=== PATIENT | female | born 1990 | race African-American/Black ===

== ENCOUNTER 2018-08-04 07:05 | Emergency (ER) | payer OTHER ==
[2018-08-04 07:11] VITALS: BP 152/92; PULSE 102; RESP 18; TEMP 99
[2018-08-04] MEDS ORDERED: MAG HYDROX/AL HYDROX/SIMETH 30 ML, HYOSCYAMINE ELIXIR 10 ML, CIMETIDINE HCL 300 MG, LID... PO STA ×4 (07:35)
[2018-08-04 07:53] LABS: Appearance,Urine Clear (Clear); Bacteria,Urine Rare /hpf; Bilirubin,Urine Negative (Negative); Blood,Urine Negative (Negative); Color,Urine Colorless; Glucose,Urine (UA) Negative (Negative); Ketones,Urine Negative (Negative); Leukocyte Esterase,Urine Small (Negative); Mucus,Urine Rare /hpf; Nitrite,Urine Negative (Negative); PH, Urine 6.5 (5.0-8.0); Protein,Urine Negative (Negative); RBC,Urine 2 /hpf (0-5); Specific Gravity,Urine 1.003 (1.001-1.035); Squamous Epithelial Cell,Urine 2 /hpf (0-4); Urobilinogen,Urine <2.0 mg/dL (<2.0)
--- NOTE | 2018-08-04 07:54 | ED ---
General Adult HPI - General Chief complaint: Back Pain/Injury Stated complaint: Back, Abdominal Pain Time Seen by Provider: 08/04/18 07:28 Source: patient, RN notes reviewed Mode of arrival: ambulatory Limitations: no limitations - History of Present Illness Initial comments: Patient 28-year-old female presented to the emergency room today with a chief complaint of abscess to the right axilla that started 2 days ago. Patient states she's never had this problem before. Denies any drainage. Does admit to pain locally. Denies any other complaints. Patient denies any recent fever, chills, shortness of breath, chest pain, back pain, abdominal pain, nausea or vomiting, numbness or tingling, headaches or visual changes, or any other complaints. - Related Data Previous Rx's Medication Instructions Recorded Ibuprofen [Motrin] 600 mg PO Q6HR PRN #30 day 08/04/18 Sulfamethox-Tmp 800-160Mg [Bactrim 1 tab PO Q12HR #20 tab 08/04/18 DS 800-160 mg] Allergies Allergy/AdvReac Type Severity Reaction Status Date / Time No Known Allergies Allergy Verified 08/04/18 07:10 Review of Systems ROS Statement: Those systems with pertinent positive or pertinent negative responses have been documented in the HPI. ROS Other: All systems not noted in ROS Statement are negative. Past Medical History Past Medical History: No Reported History History of Any Multi-Drug Resistant Organisms: None Reported Additional Past Surgical History / Comment(s): cyst removed from tailbone Past Psychological History: No Psychological Hx Reported Smoking Status: Never smoker Past Alcohol Use History: Rare Past Drug Use History: Marijuana General Exam - General Exam Comments Initial Comments: General: The patient is awake and alert, in no distress, and does not appear acutely ill. i. Musculoskeletal: Normal ROM, no tenderness. Neurological: A&O x 3. CN II-XII intact, There are no obvious motor or sensory deficits. Coordination appears grossly intact. Speech is normal. Skin: Patient has a 2 cm abscess to the right axilla that is fluctuant. No drainage. Psychiatric: Cooperative, appropriate mood & affect, normal judgment. Limitations: no limitations Course Vital Signs 08/04/18 07:05 Temperature 99 F Pulse Rate 102 H Respiratory 18 Rate Blood Pressure 152/92 O2 Sat by Pulse 98 Oximetry Procedures - Procedures Initial comment: Procedure: Incision and drainage The skin overlying the abscess was prepped with Betadine, and anesthetized with 1% lidocaine without epinephrine. A #11 scalpel was then used to incise the abscess. Moderate purulent material was then extracted from the lesion. Gauze dressing placed on top, The patient tolerated the procedure well. Medical Decision Making - Medical Decision Making Patient's abscess drained here in the emergency room. She'll be started on antibiotics. She is advised continue warm compresses follow-up the family doctor or return here to emergency room if any symptoms increase or worsen. - Lab Data Lab Results 08/04/18 Range/Units 07:30 Urine HCG, Qual Not Detected (Not Detectd) Disposition Clinical Impression: Abscess Disposition: HOME SELF-CARE Condition: Good Instructions (If sedation given, give patient instructions): Abscess (ED) Additional Instructions: Please continue warm compresses as discussed. Please use antibiotic as prescribed return to emergency room for any other concerns. Prescriptions: Ibuprofen [Motrin] 600 mg PO Q6HR PRN #30 day PRN Reason: Pain Sulfamethox-Tmp 800-160Mg [Bactrim DS 800-160 mg] 1 tab PO Q12HR #20 tab Is patient prescribed a controlled substance at d/c from ED?: No Referrals: Rebecca Boudreaux MD [Primary Care Provider] - 1-2 days Time of Disposition: 07:54
--- NOTE | 2018-08-04 08:00 | ED ---
General Adult HPI - General Chief complaint: Back Pain/Injury Stated complaint: Back, Abdominal Pain Time Seen by Provider: 08/04/18 07:28 Source: patient, RN notes reviewed Mode of arrival: ambulatory Limitations: no limitations - History of Present Illness Initial comments: Patient 28-year-old female presenting to the emergency room today with multiple complaints. Patient does admit that she's had some right-sided back pain over the past 2 days. 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 Denies any injury or trauma. Also admits that she's had some abdominal pain for some time that comes and goes. Unsure if it's possible gastric reflux as she states spicy foods make it worse. Patient states that she got off work 2 hours ago and symptoms have actually improved at this time. She denies any bowel or bladder incontinence retention. She denies any saddle anesthesia. Denies any other complaints. Patient denies any recent fever, chills, shortness of breath, chest pain, nausea or vomiting, numbness or tingling, headaches or visual changes, or any other complaints. - Related Data Previous Rx's Medication Instructions Recorded Cyclobenzaprine [Flexeril] 10 mg PO TID #20 tab 08/04/18 Ibuprofen [Motrin] 600 mg PO Q6HR PRN #30 day 08/04/18 Omeprazole [PriLOSEC] 20 mg PO AC-BRKFST 14 Days cap 08/04/18 Allergies Allergy/AdvReac Type Severity Reaction Status Date / Time No Known Allergies Allergy Verified 08/04/18 07:10 Review of Systems ROS Statement: Those systems with pertinent positive or pertinent negative responses have been documented in the HPI. ROS Other: All systems not noted in ROS Statement are negative. Past Medical History Past Medical History: No Reported History History of Any Multi-Drug Resistant Organisms: None Reported Additional Past Surgical History / Comment(s): cyst removed from tailbone Past Psychological History: No Psychological Hx Reported Smoking Status: Never smoker Past Alcohol Use History: Rare Past Drug Use History: Marijuana General Exam - General Exam Comments Initial Comments: General: The patient is awake and alert, in no distress, and does not appear acutely ill. Neck: The neck is supple, there is no tenderness or JVD. Cardiovascular: There is a regular rate and rhythm. No murmur, rub or gallop is appreciated. Respiratory: Lungs are clear to auscultation, respirations are non-labored, breath sounds are equal. No wheezes, stridor, rales, or rhonchi. Gastrointestinal: Abdomen soft nontender. No rebound, guarding or CVA tenderness. Musculoskeletal: Normal ROM,. Normal appearance of the thoracic or lumbar spine. No step-off or deformity. Paravertebral tenderness on the right side. Neurological: A&O x 3. CN II-XII intact, There are no obvious motor or sensory deficits. Coordination appears grossly intact. Speech is normal. Skin: Skin is warm and dry and no rashes or lesions are noted. Psychiatric: Cooperative, appropriate mood & affect, normal judgment. Limitations: no limitations Course Vital Signs 08/04/18 07:05 Temperature 99 F Pulse Rate 102 H Respiratory 18 Rate Blood Pressure 152/92 O2 Sat by Pulse 98 Oximetry Medical Decision Making - Medical Decision Making Patient was given GI cocktail here in the emergency room for her abdominal pain. She admits to improvement states she's feeling better. Patient states that she was on Prilosec in the past will be started back on this medication. She is advised follow-up the family doctor this coming week. Patient's back pain is worse with movements. There is no trauma or fall or injury. There is no particular pain. No bowel or bladder incontinence retention. 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 Patient will be treated with ibuprofen which she is advised may irritate her stomach and to be careful with. Also be given muscle relaxer which is advised may make her drowsy. She is advised follow-up the family doctor this week if the symptoms. Advised to return if any symptoms increase or worsen. - Lab Data Lab Results 08/04/18 08/04/18 Range/Units 07:30 07:30 Urine Color Colorless Urine Appearance Clear (Clear) Urine pH 6.5 (5.0-8.0) Ur Specific [place] 1.003 (1.001-1.035) Urine Protein Negative (Negative) Urine Glucose (UA) Negative (Negative) Urine Ketones Negative (Negative) Urine Blood Negative (Negative) Urine Nitrite Negative (Negative) Urine Bilirubin Negative (Negative) Urine Urobilinogen <2.0 (<2.0) mg/dL Ur Leukocyte Esterase Small H (Negative) Urine RBC 2 (0-5) /hpf Urine WBC 1 (0-5) /hpf Ur Squamous Epith Cells 2 (0-4) /hpf Urine Bacteria Rare H (None) /hpf Urine Mucus Rare H (None) /hpf Urine HCG, Qual Not Detected (Not Detectd) Disposition Clinical Impression: Abscess Disposition: HOME SELF-CARE Condition: Good Instructions (If sedation given, give patient instructions): Abscess (ED) Additional Instructions: Please continue warm compresses as discussed. Please use antibiotic as prescribed return to emergency room for any other concerns. Prescriptions: Cyclobenzaprine [Flexeril] 10 mg PO TID #20 tab Ibuprofen [Motrin] 600 mg PO Q6HR PRN #30 day PRN Reason: Pain Omeprazole [PriLOSEC] 20 mg PO AC-BRKFST 14 Days cap Is patient prescribed a controlled substance at d/c from ED?: No Referrals: Rebecca Boudreaux MD [Primary Care Provider] - 1-2 days Time of Disposition: 08:15
--- NOTE | 2018-08-04 08:22 | ED ---
Medical Decision Making - Lab Data Lab Results 08/04/18 08/04/18 Range/Units 07:30 07:30 Urine Color Colorless Urine Appearance Clear (Clear) Urine pH 6.5 (5.0-8.0) Ur Specific [place] 1.003 (1.001-1.035) Urine Protein Negative (Negative) Urine Glucose (UA) Negative (Negative) Urine Ketones Negative (Negative) Urine Blood Negative (Negative) Urine Nitrite Negative (Negative) Urine Bilirubin Negative (Negative) Urine Urobilinogen <2.0 (<2.0) mg/dL Ur Leukocyte Esterase Small H (Negative) Urine RBC 2 (0-5) /hpf Urine WBC 1 (0-5) /hpf Ur Squamous Epith Cells 2 (0-4) /hpf Urine Bacteria Rare H (None) /hpf Urine Mucus Rare H (None) /hpf Urine HCG, Qual Not Detected (Not Detectd) Disposition Clinical Impression: GERD (gastroesophageal reflux disease), Back pain Disposition: HOME SELF-CARE Condition: Good Instructions (If sedation given, give patient instructions): Acute Low Back Pain (ED) Additional Instructions: Please use medication as discussed. Please follow-up with family doctor in the next 2 days of symptoms have not improved. Please return to emergency room if the symptoms increase or worsen or for any other concerns. Prescriptions: Cyclobenzaprine [Flexeril] 10 mg PO TID #20 tab Ibuprofen [Motrin] 600 mg PO Q6HR PRN #30 day PRN Reason: Pain Omeprazole [PriLOSEC] 20 mg PO AC-BRKFST 14 Days cap Is patient prescribed a controlled substance at d/c from ED?: No Referrals: Rebecca Boudreaux MD [Primary Care Provider] - 1-2 days Time of Disposition: 08:22
== END 2018-08-04 08:35 | disposition home or self-care (01) ==
LOC: EC 07:05
DX: K21.9 Gastro-esophageal reflux disease without esophagitis (principal); M54.9 Dorsalgia, unspecified; Z98.890 Other specified postprocedural states
CPT/HCPCS: 81001; 81025; 99283

== ENCOUNTER 2019-02-08 05:49 | Emergency (ER) | payer OTHER ==
[2019-02-08 06:38] LABS: Appearance,Urine Cloudy (Clear); Bilirubin,Urine Negative (Negative); Blood,Urine Negative (Negative); Color,Urine Yellow; Glucose,Urine (UA) Negative (Negative); Ketones,Urine Negative (Negative); Leukocyte Esterase,Urine Moderate (Negative); Mucus,Urine Moderate /hpf; Nitrite,Urine Negative (Negative); Protein,Urine Trace (Negative); RBC,Urine 38 /hpf (0-5); Specific Gravity,Urine 1.026 (1.001-1.035); Squamous Epithelial Cell,Urine 8 /hpf (0-4)
--- NOTE | 2019-02-08 06:39 | ED ---
General Adult HPI - General Chief complaint: Abdominal Pain Stated complaint: early cramping Time Seen by Provider: 02/08/19 05:56 Source: patient, RN notes reviewed Mode of arrival: ambulatory Limitations: no limitations - History of Present Illness Initial comments: This is a 28-year-old female presents emergency Department with chief complaint of abdominal cramping. Patient states that she recently department she was last week. Patient is A0 currently scheduling to seen ORACLE MANAGER. She has no complaint of vaginal bleeding or vaginal discharge she has had some urinary frequency with no dysuria no fevers chills no flank pain no back pain. - Related Data Previous Rx's Medication Instructions Recorded Pnv No.95/Ferrous Fum/Folic AC 1 each PO DAILY #30 tablet 02/08/19 [ Multivitamin Tablet] Allergies Allergy/AdvReac Type Severity Reaction Status Date / Time No Known Allergies Allergy Verified 02/08/19 06:33 Review of Systems ROS Statement: Those systems with pertinent positive or pertinent negative responses have been documented in the HPI. ROS Other: All systems not noted in ROS Statement are negative. Past Medical History Past Medical History: No Reported History History of Any Multi-Drug Resistant Organisms: None Reported Additional Past Surgical History / Comment(s): cyst removed from tailbone Past Psychological History: No Psychological Hx Reported Smoking Status: Current every day smoker Past Alcohol Use History: Rare Past Drug Use History: Marijuana General Exam Limitations: no limitations General appearance: alert, in no apparent distress Head exam: Present: atraumatic, normocephalic, normal inspection Eye exam: Present: normal appearance, PERRL, EOMI. Absent: scleral icterus, conjunctival injection, periorbital swelling ENT exam: Present: normal exam, normal oropharynx, mucous membranes moist Neck exam: Present: normal inspection. Absent: tenderness, meningismus, lymphadenopathy Respiratory exam: Present: normal lung sounds bilaterally. Absent: respiratory distress, wheezes, rales, rhonchi, stridor Cardiovascular Exam: Present: regular rate, normal rhythm, normal heart sounds. Absent: systolic murmur, diastolic murmur, rubs, gallop, clicks GI/Abdominal exam: Present: soft, normal bowel sounds. Absent: distended, tenderness, guarding, rebound, rigid Back exam: Absent: CVA tenderness (R), CVA tenderness (L) Neurological exam: Present: alert, oriented X3, CN II-XII intact Skin exam: Present: warm, dry, intact, normal color. Absent: rash Course Vital Signs 02/08/19 05:51 Temperature 98.7 F Pulse Rate 111 H Respiratory 18 Rate Blood Pressure 150/92 O2 Sat by Pulse 100 Oximetry Medical Decision Making - Medical Decision Making 28-year-old female presents emergency from chief complaint abdominal cramping and early . Patient ultrasound urinalysis and hCG Quant. Patient has single viable IUP 7 weeks and 1 day there is no comp eating fractures at this time. She did have blood in her urine but denies any vaginal bleeding patient did decline pelvic exam. Patient is B+ blood type does not require RhoGAM. Patient has no evidence of urinary tract infection. - Lab Data Lab Results 02/08/19 02/08/19 02/08/19 Range/Units 06:00 06:15 06:15 HCG, Quant 61811.7 mIU/mL Urine Color Yellow Urine Appearance Cloudy H (Clear) Urine pH 6.0 (5.0-8.0) Ur Specific [place] 1.026 (1.001-1.035) Urine Protein Trace H (Negative) Urine Glucose (UA) Negative (Negative) Urine Ketones Negative (Negative) Urine Blood Negative (Negative) Urine Nitrite Negative (Negative) Urine Bilirubin Negative (Negative) Urine Urobilinogen 2.0 (<2.0) mg/dL Ur Leukocyte Esterase Moderate H (Negative) Urine RBC 38 H (0-5) /hpf Urine WBC 3 (0-5) /hpf Ur Squamous Epith Cells 8 H (0-4) /hpf Urine Mucus Moderate H (None) /hpf Blood Type B Positive Blood Type Recheck No Disposition Clinical Impression: Abdominal pain during Disposition: HOME SELF-CARE Condition: Stable Instructions (If sedation given, give patient instructions): Abdominal Pain in (ED) Additional Instructions: Please return to the Emergency Department if symptoms worsen or any other concerns. Prescriptions: Pnv No.95/Ferrous Fum/Folic AC [ Multivitamin Tablet] 1 each PO DAILY #30 tablet Is patient prescribed a controlled substance at d/c from ED?: No Referrals: Rebecca Boudreaux MD [Primary Care Provider] - 1-2 days Time of Disposition: 08:00
--- NOTE | 2019-02-08 07:39 | US ---
EXAMINATION TYPE: Transabdominal DATE OF EXAM: 02/08/2019 7:27 AM COMPARISON: NONE CLINICAL HISTORY: Pain. cramping, no bleeding, EXAM PERFORMED: OBTA EXAM MEASUREMENTS: GESTATIONAL AGE / DATING Physician Established: Not yet established Dates by LMP: (6 weeks/2 days) EDC: 10/02/2019 Dates by First Scan: No previous this is first scan Dates by Current Scan for: (7 weeks/1 days) EDC: 09/26/2019 MATERNAL ANATOMY Uterus: 9.7 x 7.3 x 6.6cm Right Ovary: 4.1 x 3.4 x 4.6cm Left Ovary: not seen Post CDS / Adnexa: wnl Presence of free fluid: no Presence of corpus luteal cyst: yes, right ov has 2 cystic structures largest = 2.0cm, and smaller on =1.9cm Presence of subchorionic bleed: no GESTATION / SURVEY CRL: 1.1cm (7 weeks/1 days) MSD: wnl Yolk Sac (normal less than 6mm): 0.5cm Heart Rate: 145 bpm Rhythm: Normal IUP: Live IUP Date of LMP: 12/26/2018 Beta HcG (if available): None IMPRESSION: Single live intrauterine with a calculated sonographic age of 7 weeks and 1 day and estimat ed date of delivery of 09/26/2019 overall concordant with menstrual age. No complicating process is se en at this time.
[2019-02-08 08:14] VITALS: BP 128/42; PULSE 79; RESP 16; TEMP 98.2
== END 2019-02-08 08:13 | disposition home or self-care (01) ==
LOC: EC 05:49
DX: O99.89 Other specified diseases and conditions complicating pregnancy, childbirth and the puerperium (principal); R10.9 Unspecified abdominal pain; O99.331 Smoking (tobacco) complicating pregnancy, first trimester; F17.200 Nicotine dependence, unspecified, uncomplicated; O26.891 Other specified pregnancy related conditions, first trimester; R31.9 Hematuria, unspecified; Z3A.01 Less than 8 weeks gestation of pregnancy
CPT/HCPCS: 36415; 76801; 81001; 84702; 86900; 86901; 99284

== ENCOUNTER → 2019-03-26 | Outpatient (CLI) | payer OTHER ==
--- NOTE | 2019-03-26 18:55 | US ---
EXAMINATION TYPE: US OB >= 14 wk fetus DATE OF EXAM: 03/26/2019 COMPARISON: US CLINICAL HISTORY: O99.211 obesity affecting in first Confirm dates, obesity on TECHNIQUE: Transabdominal (TA) GESTATIONAL AGE / DATING Physician Established: (13 weeks/5 days) EDC: 09/26/2019 Dates by LMP: unknown Dates by First Scan: (13 weeks/5 days) EDC: 09/26/2019 Dates by Current Scan: (15 weeks/0 days) EDC: 09/17/2019 SURVEY IUP: Single PLACENTA: Posterior PREVIA: Low Lying EDISON: Too early to calculate CERVICAL LENGTH (transabdominal: norm > 3.0cm): 4.7 cm BIOMETRY PRESENTATION: Variable BPD: 2.8 cm 15 weeks / 1 days HC: 10.8 cm 15 weeks / 2 days AC: 8.6 cm 15 weeks / 0 days FL: 1.5 cm 14 weeks / 3 days ESTIMATED WEIGHT IN GRAMS: 105 grams ESTIMATED WEIGHT IN LBS/OZ: 0 lbs. 4 oz. WEIGHT PERCENTAGE BASED ON ESTABLISHED DATES: 94% HC/AC: 1.26 Normal FL/AC: 17 Normal HEART RATE: 156 bpm RHYTHM: Normal Single, viable IUP/ No abnormality visualized at this time Morbidly obese pt, difficult exam IMPRESSION: 1. Single intrauterine gestation estimated at 15 weeks 0 days gestation based on current ultrasound m easurements. Cardiac activity measures 156 bpm.
== END | disposition home or self-care (01) ==
LOC: RADUSWWP 13:39
PROVIDERS: ATTEND Obstetrics & Gynecology
DX: O99.211 Obesity complicating pregnancy, first trimester (principal); Z3A.15 15 weeks gestation of pregnancy
CPT/HCPCS: 76805

== ENCOUNTER 2019-04-29 15:39 | Emergency (ER) | payer OTHER ==
[2019-04-29 15:48] VITALS: BP 136/67; PULSE 88; RESP 20; TEMP 98.9
[2019-04-29] MEDS ORDERED: ACETAMINOPHEN TAB 500 MG TAB PO STA (16:12)
[2019-04-29 16:16] LABS: Appearance,Urine Clear (Clear); Bacteria,Urine Rare /hpf; Bilirubin,Urine Negative (Negative); Blood,Urine Negative (Negative); Color,Urine Yellow; Glucose,Urine (UA) Negative (Negative); Ketones,Urine Negative (Negative); Leukocyte Esterase,Urine Small (Negative); Mucus,Urine Rare /hpf; Nitrite,Urine Negative (Negative); Protein,Urine Trace (Negative); Specific Gravity,Urine 1.019 (1.001-1.035); Squamous Epithelial Cell,Urine 2 /hpf (0-4)
--- NOTE | 2019-04-29 16:19 | ED ---
Back Pain HPI - General Chief Complaint: Back Pain/Injury Stated Complaint: Back pain/18 wks preg Time Seen by Provider: 04/29/19 15:49 Source: patient Limitations: no limitations - History of Present Illness Initial Comments: Patient is a 28-year-old female presenting to emergency Department with complaints of left low back pain 4 days. Patient is currently 18 weeks , , no complications as far. Patient states the pain started gradually approximately 4 days ago and has not gone away. Patient states it does not feel like muscle pain. Admits to occasional nausea that has not been present during . Patient denies any urinary complaints at this time or history of kidney stones. Patient admits to history of hematuria approximately 10 weeks prior without signs of infection. Patient denies fever, chills, vomiting, diarrhea. Patient has not tried Tylenol for her pain. Patient has no other complaints at this time. Upon arrival to ER, vital signs are stable. - Related Data Previous Rx's Medication Instructions Recorded Pnv No.95/Ferrous Fum/Folic AC 1 each PO DAILY #30 tablet 02/08/19 [ Multivitamin Tablet] Allergies Allergy/AdvReac Type Severity Reaction Status Date / Time No Known Allergies Allergy Verified 04/29/19 15:48 Review of Systems ROS Statement: Those systems with pertinent positive or pertinent negative responses have been documented in the HPI. ROS Other: All systems not noted in ROS Statement are negative. Past Medical History Past Medical History: No Reported History History of Any Multi-Drug Resistant Organisms: None Reported Additional Past Surgical History / Comment(s): cyst removed from tailbone Past Psychological History: No Psychological Hx Reported Smoking Status: Current every day smoker Past Alcohol Use History: Rare Past Drug Use History: Marijuana General Exam - General Exam Comments Initial Comments: GENERAL: Well-appearing, well-nourished and in no acute distress. HEAD: Atraumatic, normocephalic. EYES: Pupils equal round and reactive to light, extraocular movements intact, sclera anicteric, conjunctiva are normal. ENT: TMs normal, nares patent, oropharynx clear without exudates. Moist mucous membranes. NECK: Normal range of motion, supple without lymphadenopathy or JVD. LUNGS: Breath sounds clear to auscultation bilaterally and equal. No wheezes rales or rhonchi. HEART: Regular rate and rhythm without murmurs, rubs or gallops. ABDOMEN: Soft, nontender, normoactive bowel sounds. No guarding, no rebound. No masses appreciated. No CVA tenderness. : Deferred EXTREMITIES: Normal range of motion, no pitting or edema. No clubbing or cyanosis. NEUROLOGICAL: Cranial nerves II through XII grossly intact. Normal speech, normal gait. PSYCH: Normal mood, normal affect. SKIN: Warm, Dry, normal turgor, no rashes or lesions noted. Limitations: no limitations Course Vital Signs 04/29/19 15:46 Temperature 98.9 F Pulse Rate 88 Respiratory 20 Rate Blood Pressure 136/67 O2 Sat by Pulse 99 Oximetry Medical Decision Making - Medical Decision Making Patient is a 28-year-old female presenting with left low back pain 4 days. Patient is currently 18 weeks without complications thus far. UA shows no signs of infection, no hematuria. Discussed with patient is most likely a muscle-skeletal in nature. Patient has follow-up with PODIATRIC TECHNICIAN in 4 days. She is stable for discharge at this time. She is in agreement with this plan of care. Return parameters were discussed with the patient and she verbalized understanding. Case discussed with Dr. Pettit. - Lab Data Lab Results 04/29/19 Range/Units 16:05 Urine Color Yellow Urine Appearance Clear (Clear) Urine pH 7.0 (5.0-8.0) Ur Specific [place] 1.019 (1.001-1.035) Urine Protein Trace H (Negative) Urine Glucose (UA) Negative (Negative) Urine Ketones Negative (Negative) Urine Blood Negative (Negative) Urine Nitrite Negative (Negative) Urine Bilirubin Negative (Negative) Urine Urobilinogen 12.0 (<2.0) mg/dL Ur Leukocyte Esterase Small H (Negative) Urine WBC 2 (0-5) /hpf Ur Squamous Epith Cells 2 (0-4) /hpf Urine Bacteria Rare H (None) /hpf Urine Mucus Rare H (None) /hpf Disposition Clinical Impression: Low back pain Disposition: HOME SELF-CARE Condition: Stable Instructions (If sedation given, give patient instructions): Acute Low Back Pain (ED) Additional Instructions: Please return to the Emergency Department if symptoms worsen or any other concerns. Follow-up with PODIATRIC TECHNICIAN as discussed next week. May use heat and use tylenol for releif. Is patient prescribed a controlled substance at d/c from ED?: No Referrals: Rebecca Boudreaux MD [Primary Care Provider] - 1-2 days
== END 2019-04-29 16:55 | disposition home or self-care (01) ==
LOC: EC 15:39
DX: O99.89 Other specified diseases and conditions complicating pregnancy, childbirth and the puerperium (principal); M54.5 Low back pain; O99.332 Smoking (tobacco) complicating pregnancy, second trimester; F17.200 Nicotine dependence, unspecified, uncomplicated; Z3A.18 18 weeks gestation of pregnancy
CPT/HCPCS: 81001; 99283

== ENCOUNTER 2019-09-21 17:52 | Inpatient (IN) | payer OTHER ==
[2019-09-21] MEDS ORDERED: MAGNESIUM SULFATE-WATER PMX 4 GM in WATER FOR INJECTION 1 100ML.BAG IVPB STA (18:28)
[2019-09-21] MEDS ORDERED: MAGNESIUM SULFATE-WATER PMX 20 GM in WATER FOR INJECTION 1 500ML.BAG IV SCH ×2 (18:30→22:45)
[2019-09-21 18:33] LABS: Basophils % (A) 0 %; Eosinophils # (A) 0.3 k/uL (0-0.7); Eosinophils % (A) 3 %; HCT 39.2 % (34.0-46.0); HGB 12.6 gm/dL (11.4-16.0); Lymphocytes # (A) 2.3 k/uL (1.0-4.8); Lymphocytes % (A) 22 %; MCH 29.1 pg (25.0-35.0); MCHC 32.1 g/dL (31.0-37.0); MCV 90.6 fL (80.0-100.0); Mean Platelet Volume 8.9; Monocytes # (A) 0.3 k/uL (0-1.0); Monocytes % (A) 3 %; Neutrophils # (A) 7.2 k/uL (1.3-7.7); Neutrophils % (A) 69 %; Platelet Count 203 k/uL (150-450); RBC 4.33 m/uL (3.80-5.40); RDW 14.3 % (11.5-15.5); WBC 10.4 k/uL (3.8-10.6)
--- NOTE | 2019-09-21 18:35 | ED ---
General Adult HPI <Tom Ley - Last Filed: 09/21/19 20:14> - General Source: patient, RN notes reviewed, old records reviewed Mode of arrival: ambulatory Limitations: no limitations <Wil Green - Last Filed: 09/21/19 20:23> - General Chief complaint: Shortness of Breath Stated complaint: SOB, leg swelling - History of Present Illness Initial comments: 29-year-old female patient 5 days post vaginal delivery of NC 50 complaint 3 days of bilateral leg swelling, mild shortness of breath. Patient reports that she delivered at 38 weeks, vaginal delivery. Denies any complications. Denies any gestational hypertension or diabetes, preeclampsia. Patient delivered at [facility] with Dr. Crabtree patient was in the last 3 days she has been experiencing swelling in her lower extremities and some very mild shortness of breath. Denies any chest pain. Denies any pain in her lower extremity is. Denies abdominal pain. Denies any symptoms vaginal bleeding or discharge. Denies any headache changes in vision also mental status. Denies any other complaints. Denies any fevers, contact with known coronavirus or travel. Denies any prior history of VTE. Patient is not breast-feeding. Systemic: Pt denies fatigue, fever/chills, rash. Pt denies weakness, night sweats, weight loss. Neuro: Pt denies headache, visual disturbances, syncope or pre-syncope. HEENT: Pt denies ocular discharge or irritation, otalgia, rhinorrhea, pharyngitis or notable lymphadenopathy. Cardiopulmonary: Pt denies chest pain, heart palpitations, dyspnea on exertion. Abdominal/GI: Pt denies abdominal pain, n/v/d. : Pt denies dysuria, burning w/ urination, frequency/urgency. Denies new onset urinary or bowel incontinence. MSK: Pt denies myalgia, loss of strength or function in extremities. Neuro: Pt denies new onset weakness, paresthesias. (Wil Green) - Related Data Home Medications Medication Instructions Recorded Confirmed Ibuprofen [Motrin Ib] 800 mg PO TID PRN 09/21/19 09/21/19 Allergies Allergy/AdvReac Type Severity Reaction Status Date / Time No Known Allergies Allergy Verified 09/21/19 19:48 Review of Systems ROS Other: All systems not noted in ROS Statement are negative. <Tom Ley - Last Filed: 09/21/19 20:14> ROS Other: All systems not noted in ROS Statement are negative. <Wil Green - Last Filed: 09/21/19 20:23> ROS Statement: Those systems with pertinent positive or pertinent negative responses have been documented in the HPI. Past Medical History Past Medical History: No Reported History History of Any Multi-Drug Resistant Organisms: None Reported Additional Past Surgical History / Comment(s): cyst removed from tailbone Past Psychological History: No Psychological Hx Reported Smoking Status: Current every day smoker Past Alcohol Use History: Rare Past Drug Use History: Marijuana <Wil Green - Last Filed: 09/21/19 20:23> General Exam Limitations: no limitations <Wil Green - Last Filed: 09/21/19 20:23> - General Exam Comments Initial Comments: Constitutional: NAD, AOX3, Pt has pleasant affect. HEENT: NC/AT, trachea midline, neck supple, no lymphadenopathy. Posterior pharynx non erythematous, without exudates. External ears appear normal, without discharge. Mucous membranes moist. Eyes PERRLA, EOM intact. There is no scleral icterus. No pallor noted. Cardiopulmonary: RRR, no murmurs, rubs or gallops, no JVD noted. Lungs CTAB in anterior and posterior english. +2 peripheral edema. Abdominal exam: Abdomen soft and non-distended. Abdomen non-tender to palpation in all 4 quadrants. Bowel sounds active in LLQ. No hepatosplenomegaly. No ecchymosis Neuro: CN II-XII intact. No nuchal rigidity. No raccon eyes, no lainez sign, no hemotympanum. No cervical spinal tenderness. Patellar reflexes +2 bilaterally. MSK: No posterior calf tenderness bilaterally, homans sign negative bilaterally. Posterior tibialis and radial pulse +2 bilaterally. Sensation intact in upper and lower extremities. Full active ROM in upper and lower extremities, 5/5 stregnth. (Wil Green) Course Vital Signs 09/21/19 09/21/19 09/21/19 17:54 18:10 18:17 Temperature 98.6 F Pulse Rate 71 76 Respiratory 18 21 20 Rate Blood Pressure 177/100 O2 Sat by Pulse 99 Oximetry 09/21/19 09/21/1920 18:20 18:30 18:40 Temperature Pulse Rate 71 70 66 Respiratory 21 20 18 Rate Blood Pressure 159/112 159/112 169/88 O2 Sat by Pulse 98 97 97 Oximetry 09/21/19 09/21/19 09/21/19 18:50 19:00 19:10 Temperature Pulse Rate 61 66 Respiratory 15 20 Rate Blood Pressure 169/88 173/87 165/86 O2 Sat by Pulse 97 98 Oximetry 09/21/19 09/21/19 09/21/19 19:20 19:30 19:40 Temperature Pulse Rate 73 72 77 Respiratory 24 18 19 Rate Blood Pressure 165/86 165/86 160/80 O2 Sat by Pulse 95 97 97 Oximetry 09/21/19 09/21/19 19:50 20:00 Temperature Pulse Rate 75 75 Respiratory 23 21 Rate Blood Pressure 155/82 155/82 O2 Sat by Pulse 97 97 Oximetry Medical Decision Making - Lab Data Result diagrams: 09/21/19 18:15 09/21/19 18:15 <Tom Ley - Last Filed: 09/21/19 20:14> - Lab Data Result diagrams: 09/21/19 18:15 09/21/19 18:15 - EKG Data -: EKG Interpreted by Me (and Dr. Ley) <Wil Green - Last Filed: 09/21/19 20:23> - Medical Decision Making 29-year-old female presenting with dyspnea, bilateral lower extremity swelling, 5 days , vaginal delivery. Patient is hypertensive, there is concern for preeclampsia. Workup is initiated emergency department. She has normal CBC, normal platelets, stable hemoglobin. She has a normal kidney function, mild transaminitis, mild elevation in LDH. She has 2+ proteinuria consistent with preeclampsia. X-ray showing blunting of the bilateral costophrenic angles, with cardio megaly. There is concern for cardiomyopathy in addition to preeclampsia. She is started on magnesium, bolus and infusion as well as labetalol in the emergency department. She's given antibiotics as there is some concern for pneumonia although I suspect this is likely related to pulmonary edema rather than mitch pneumonia as this patient has not coughed, there is no fever, there is no leukocytosis. I discussed the case with Dr. Connors, he will accept admission. Both internal medicine and cardiology placed on consult. Echo will be obtained. She will have close monitoring of her in's and out's. She's placed in seizure precautions. Diagnosis: preeclampsia, hypertension, concern for -induced cardiomyopathy (Tom Ley) - Lab Data Lab Results 09/21/19 09/21/19 09/21/19 Range/Units 18:15 18:15 18:15 WBC 10.4 (3.8-10.6) k/uL RBC 4.33 (3.80-5.40) m/uL Hgb 12.6 (11.4-16.0) gm/dL Hct 39.2 (34.0-46.0) % MCV 90.6 (80.0-100.0) fL MCH 29.1 (25.0-35.0) pg MCHC 32.1 (31.0-37.0) g/dL RDW 14.3 (11.5-15.5) % Plt Count 203 (150-450) k/uL Neutrophils % 69 % Lymphocytes % 22 % Monocytes % 3 % Eosinophils % 3 % Basophils % 0 % Neutrophils # 7.2 (1.3-7.7) k/uL Lymphocytes # 2.3 (1.0-4.8) k/uL Monocytes # 0.3 (0-1.0) k/uL Eosinophils # 0.3 (0-0.7) k/uL Basophils # 0.0 (0-0.2) k/uL Sodium 136 L (137-145) mmol/L Potassium 4.3 (3.5-5.1) mmol/L Chloride 107 (98-107) mmol/L Carbon Dioxide 27 (22-30) mmol/L Anion Gap 2 mmol/L BUN 14 (7-17) mg/dL Creatinine 0.52 (0.52-1.04) mg/dL Est GFR (CKD-EPI)AfAm >90 (>60 ml/min/1.73 sqM) Est GFR (CKD-EPI)NonAf >90 (>60 ml/min/1.73 sqM) Glucose 73 L (74-99) mg/dL Uric Acid 6.0 (3.7-7.4) mg/dL Calcium 8.4 (8.4-10.2) mg/dL Magnesium 1.5 L (1.6-2.3) mg/dL Total Bilirubin 0.2 (0.2-1.3) mg/dL AST 37 H (14-36) U/L ALT 50 H (4-34) U/L Alkaline Phosphatase 102 (38-126) U/L Lactate Dehydrogenase 748 H (313-618) U/L Troponin I 0.016 (0.000-0.034) ng/mL NT-Pro-B Natriuret Pep pg/mL Total Protein 6.1 L (6.3-8.2) g/dL Albumin 3.2 L (3.5-5.0) g/dL Urine Color Urine Appearance (Clear) Urine pH (5.0-8.0) Ur Specific Hart[place] (1.001-1.035) Urine Protein (Negative) Urine Glucose (UA) (Negative) Urine Ketones (Negative) Urine Blood (Negative) Urine Nitrite (Negative) Urine Bilirubin (Negative) Urine Urobilinogen (<2.0) mg/dL Ur Leukocyte Esterase (Negative) Urine RBC (0-5) /hpf Urine WBC (0-5) /hpf Ur Squamous Epith Cells (0-4) /hpf Amorphous Sediment (None) /hpf Urine Bacteria (None) /hpf Hyaline Casts (0-2) /lpf Urine Mucus (None) /hpf 09/21/19 09/21/19 Range/Units 18:27 19:05 WBC (3.8-10.6) k/uL RBC (3.80-5.40) m/uL Hgb (11.4-16.0) gm/dL Hct (34.0-46.0) % MCV (80.0-100.0) fL MCH (25.0-35.0) pg MCHC (31.0-37.0) g/dL RDW (11.5-15.5) % Plt Count (150-450) k/uL Neutrophils % % Lymphocytes % % Monocytes % % Eosinophils % % Basophils % % Neutrophils # (1.3-7.7) k/uL Lymphocytes # (1.0-4.8) k/uL Monocytes # (0-1.0) k/uL Eosinophils # (0-0.7) k/uL Basophils # (0-0.2) k/uL Sodium (137-145) mmol/L Potassium (3.5-5.1) mmol/L Chloride (98-107) mmol/L Carbon Dioxide (22-30) mmol/L Anion Gap mmol/L BUN (7-17) mg/dL Creatinine (0.52-1.04) mg/dL Est GFR (CKD-EPI)AfAm (>60 ml/min/1.73 sqM) Est GFR (CKD-EPI)NonAf (>60 ml/min/1.73 sqM) Glucose (74-99) mg/dL Uric Acid (3.7-7.4) mg/dL Calcium (8.4-10.2) mg/dL Magnesium (1.6-2.3) mg/dL Total Bilirubin (0.2-1.3) mg/dL AST (14-36) U/L ALT (4-34) U/L Alkaline Phosphatase (38-126) U/L Lactate Dehydrogenase (313-618) U/L Troponin I (0.000-0.034) ng/mL NT-Pro-B Natriuret Pep 399 pg/mL Total Protein (6.3-8.2) g/dL Albumin (3.5-5.0) g/dL Urine Color Yellow Urine Appearance Cloudy H (Clear) Urine pH 6.0 (5.0-8.0) Ur Specific Hartman 1.036 H (1.001-1.035) Urine Protein 2+ H (Negative) Urine Glucose (UA) Negative (Negative) Urine Ketones Negative (Negative) Urine Blood Large H (Negative) Urine Nitrite Negative (Negative) Urine Bilirubin Negative (Negative) Urine Urobilinogen <2.0 (<2.0) mg/dL Ur Leukocyte Esterase Large H (Negative) Urine RBC 83 H (0-5) /hpf Urine WBC 78 H (0-5) /hpf Ur Squamous Epith Cells 19 H (0-4) /hpf Amorphous Sediment Rare H (None) /hpf Urine Bacteria Rare H (None) /hpf Hyaline Casts 2 (0-2) /lpf Urine Mucus Many H (None) /hpf - EKG Data EKG Comments: Ventricular rate 74, RI interval 136, QRS 76, QT/QTC 378/419. No concern for acute ischemia at this time. (Wil Green) Critical Care Time Critical Care Time: Yes Total Critical Care Time: 35 <Tom Ley - Last Filed: 09/21/19 20:14> Disposition <Tom Ley - Last Filed: 09/21/19 20:14> Is patient prescribed a controlled substance at d/c from ED?: No <Wil Green - Last Filed: 09/21/19 20:23> Clinical Impression: Pre-eclampsia in period, Hypertension Narrative: concern for peripartum cardiomyopathy (Wil Green) Disposition: ADMITTED IP TO THIS HOSP Condition: Serious Referrals: Rebecca Boudreaux MD [Primary Care Provider] - 1-2 days
[2019-09-21] MEDS ORDERED: LABETALOL 5 MG/ML VIAL MDV IVP STA ×2 (18:40→19:33)
[2019-09-21 18:41] LABS: ALT 50 U/L (4-34); AST 37 U/L (14-36); African American GFR (CKD) >90 (>60 ml/min/1.73 sqM); Albumin 3.2 g/dL (3.5-5.0); Alkaline Phosphatase 102 U/L (38-126); Anion Gap 2 mmol/L; Blood Urea Nitrogen 14 mg/dL (7-17); Calcium 8.4 mg/dL (8.4-10.2); Carbon Dioxide 27 mmol/L (22-30); Chloride 107 mmol/L (98-107); Glucose 73 mg/dL (74-99); LDH 748 U/L (313-618); Magnesium 1.5 mg/dL (1.6-2.3); Non-African American GFR(CKD) >90 (>60 ml/min/1.73 sqM); Potassium 4.3 mmol/L (3.5-5.1); Sodium 136 mmol/L (137-145); Total Bilirubin 0.2 mg/dL (0.2-1.3); Total Protein 6.1 g/dL (6.3-8.2)
--- NOTE | 2019-09-21 19:01 | XR ---
EXAMINATION TYPE: XR chest 2V DATE OF EXAM: 09/21/2019 COMPARISON: NONE HISTORY: Short of breath. Leg swelling TECHNIQUE: 2 views FINDINGS: There is some airspace infiltrate in the right lower lobe posteriorly. There is mild blunti ng of the costophrenic angles. There are no hilar masses. There is no heart failure. There are chest leads. IMPRESSION: Mild pleural reaction at the lung bases. Right lower lobe pneumonia. Heart is borderline enlarged.
[2019-09-21] MEDS ORDERED: PIPERACILLIN-TAZOBACTAM 3.375 GM in SODIUM CHLORIDE 0.9% 100 ML IVPB STA (19:28)
[2019-09-21] MEDS ORDERED: AZITHROMYCIN 500 MG in SODIUM CHLORIDE 0.9% 250 ML IVPB STA (19:28)
--- NOTE | 2019-09-21 19:39 | US ---
EXAMINATION TYPE: US venous doppler duplex LE DATE OF EXAM: 09/21/2019 7:32 PM COMPARISON: NONE CLINICAL HISTORY: sob. SOB swelling SIDE PERFORMED: Bilateral TECHNIQUE: The lower extremity deep venous system is examined utilizing real time linear array sonog aguilar with graded compression, doppler sonography and color-flow sonography. VESSELS IMAGED: External Iliac Vein (EIV) Common Femoral Vein Deep Femoral Vein Greater Saphenous Vein * Femoral Vein Popliteal Vein Small Saphenous Vein * Proximal Calf Veins (* superficial vessels) Right Leg: Negative for DVT Left Leg: Negative for DVT IMPRESSION: Normal exam. No sign of deep vein thrombosis in both legs.
[2019-09-21 19:44] LABS: Amorphous Sediment,Urine Rare /hpf; Appearance,Urine Cloudy (Clear); Bacteria,Urine Rare /hpf; Bilirubin,Urine Negative (Negative); Blood,Urine Large (Negative); Color,Urine Yellow; Glucose,Urine (UA) Negative (Negative); Hyaline Casts,Urine 2 /lpf (0-2); Ketones,Urine Negative (Negative); Leukocyte Esterase,Urine Large (Negative); Mucus,Urine Many /hpf; Nitrite,Urine Negative (Negative); Protein,Urine 2+ (Negative); RBC,Urine 83 /hpf (0-5); Specific Gravity,Urine 1.036 (1.001-1.035); Squamous Epithelial Cell,Urine 19 /hpf (0-4); Urobilinogen,Urine <2.0 mg/dL (<2.0); WBC,Urine 78 /hpf (0-5)
[2019-09-21] MEDS ORDERED: FUROSEMIDE 10 MG/ML 2 ML VIAL IV STA (19:55)
[2019-09-21] MEDS ORDERED: NALOXONE 0.4 MG/ML 1 ML VIAL IV PRN (20:09)
[2019-09-21] MEDS ORDERED: MAGNESIUM SULFATE WATER PMX IV SCH ×2 (20:31)
[2019-09-21] MEDS ORDERED: WATER IV SCH ×2 (20:31)
[2019-09-21] MEDS ORDERED: DEXTROSE 5% IV SCH ×2 (20:31)
[2019-09-21] MEDS: LACTATED RINGERS 1,000 ML IV SCH (22:56)
[2019-09-22] MEDS ORDERED: LABETALOL 5 MG/ML VIAL MDV IVP SCH
[2019-09-22] MEDS: ACETAMINOPHEN TAB 325 MG TAB PO PRN (02:53)
[2019-09-22] MEDS ORDERED: LABETALOL 5 MG/ML VIAL MDV IVP STA (03:00)
[2019-09-22] MEDS ORDERED: LABETALOL 200 MG TAB PO SCH (06:00)
[2019-09-22] MEDS: MAGNESIUM SULFATE WATER PMX IV SCH ×4 (06:28→19:59)
[2019-09-22] MEDS: DEXTROSE 5% IV SCH ×4 (06:28→19:59)
[2019-09-22] MEDS: WATER IV SCH ×4 (06:28→19:59)
[2019-09-22 06:44] LABS: Basophils # (A) 0.1 k/uL (0-0.2); Basophils % (A) 1 %; Eosinophils # (A) 0.2 k/uL (0-0.7); Eosinophils % (A) 2 %; HCT 38.1 % (34.0-46.0); HGB 12.2 gm/dL (11.4-16.0); Lymphocytes # (A) 1.8 k/uL (1.0-4.8); Lymphocytes % (A) 17 %; MCH 29.5 pg (25.0-35.0); MCV 92.1 fL (80.0-100.0); Monocytes # (A) 0.4 k/uL (0-1.0); Monocytes % (A) 3 %; Neutrophils # (A) 8.2 k/uL (1.3-7.7); Neutrophils % (A) 76 %; Platelet Count 190 k/uL (150-450); RBC 4.13 m/uL (3.80-5.40); RDW 14.5 % (11.5-15.5); WBC 10.9 k/uL (3.8-10.6)
[2019-09-22 06:56] LABS: ALT 69 U/L (4-34); AST 62 U/L (14-36); African American GFR (CKD) >90 (>60 ml/min/1.73 sqM); Albumin 3.1 g/dL (3.5-5.0); Alkaline Phosphatase 107 U/L (38-126); Anion Gap 7 mmol/L; Blood Urea Nitrogen 10 mg/dL (7-17); Calcium 7.7 mg/dL (8.4-10.2); Carbon Dioxide 25 mmol/L (22-30); Chloride 105 mmol/L (98-107); Glucose 88 mg/dL (74-99); Magnesium 3.5 mg/dL (1.6-2.3); Non-African American GFR(CKD) >90 (>60 ml/min/1.73 sqM); Potassium 4.2 mmol/L (3.5-5.1); Sodium 137 mmol/L (137-145); Total Bilirubin 0.3 mg/dL (0.2-1.3); Total Protein 5.9 g/dL (6.3-8.2)
--- NOTE | 2019-09-22 08:13 | P.HPOB ---
History of Present Illness H&P Date: 09/22/19 Chief Complaint: Shortness of breath/dyspnea 6 days The patient is a 29-year-old 3 para 3003 who presents to the emergency room with significant shortness of breath and having had a normal spontaneous vaginal delivery 5 days prior to being seen in the emergency department. Workup in the emergency department demonstrated cardiomegaly as well as bilateral pleural effusions and a possible suggestion of an infiltrate on chest x-ray. Venous Dopplers failed to demonstrate any blood clots though she was found with significant bilateral edema. She additionally had fairly significant elevated blood pressures. Remainder of the laboratory workup was within normal limits. Neither case, the diagnosis of preeclampsia was made and the patient was admitted. She reports no history of preeclampsia in any of her prior pregnancies and has had no issues with hypertension in the past as well. This was entirely uncomplicated with a normal spontaneous vaginal delivery per her report. She did deliver at [facility] in the care of Dr. Piotr Crabtree. Obstetrical history: 3 para 3003 with 3 term vaginal deliveries without apparent complication. Gynecologic history: Unremarkable with no history of any infections to include STDs. Review of Systems Review of systems is confined to history of present illness. Past Medical History Past Medical History: No Reported History History of Any Multi-Drug Resistant Organisms: None Reported Additional Past Surgical History / Comment(s): cyst removed from tailbone, vaginal delivery 09/15 at [facility] Past Psychological History: No Psychological Hx Reported Smoking Status: Current every day smoker Past Alcohol Use History: Rare Past Drug Use History: Marijuana Medications and Allergies Home Medications Medication Instructions Recorded Confirmed Type Ibuprofen [Motrin Ib] 800 mg PO TID PRN 09/21/19 09/21/19 History Allergies Allergy/AdvReac Type Severity Reaction Status Date / Time No Known Allergies Allergy Verified 09/21/19 19:48 Exam Vital Signs Temp Pulse Pulse Resp BP BP Pulse Ox 09/22/19 07:00 85 189/98 09/22/19 05:00 97.7 F 83 18 167/84 94 L 09/22/19 04:00 83 18 09/22/19 02:55 80 18 178/95 09/22/19 01:00 85 18 166/85 95 09/21/19 23:55 84 18 09/21/19 23:00 98.0 F 84 18 163/81 95 09/21/19 22:02 98.1 F 76 18 153/72 95 09/21/19 22:00 84 18 09/21/19 21:40 81 20 135/72 96 09/21/19 21:10 81 18 127/80 97 09/21/19 20:50 77 18 139/98 97 09/21/19 20:30 77 19 160/80 98 09/21/19 20:10 76 20 158/82 96 09/21/19 20:00 75 21 155/82 97 09/21/19 19:50 75 23 155/82 97 09/21/19 19:40 77 19 160/80 97 09/21/19 19:30 72 18 165/86 97 09/21/19 19:20 73 24 165/86 95 09/21/19 19:10 165/86 09/21/19 19:00 66 20 173/87 98 09/21/19 18:50 61 15 169/88 97 09/21/19 18:40 66 18 169/88 97 09/21/19 18:30 70 20 159/112 97 09/21/19 18:20 71 21 159/112 98 09/21/19 18:17 20 09/21/19 18:10 76 21 09/21/19 17:54 98.6 F 71 18 177/100 99 Intake and Output 09/21/19 09/22/19 09/22/19 22:59 06:59 14:59 Output Total 1650 Balance -1650 Output: Urine 1650 Other: Voiding Method Toilet Toilet # Voids 1 Weight 145.15 kg 142.9 kg In general, this is a moderately obese female in no acute distress. Her heart has a regular rhythm and rate without murmur. Her lungs are clear to auscultation bilaterally in all english. Her abdomen is nondistended, has normal active bowel sounds, soft, nontender, and without any palpable masses aside from uterine fundus which is appropriate at just below the umbilicus for 6 days . Her extremities are currently without any cyanosis, clubbing, or significant edema and are nontender to palpation bilaterally. SCDs are in place. Pelvic examination is deferred. Results Result Diagrams: 09/22/19 06:11 09/22/19 06:11 Abnormal Lab Results - Last 24 Hours (Table) 09/21/19 09/21/19 09/22/19 Range/Units 18:15 19:05 06:11 WBC 10.9 H (3.8-10.6) k/uL Neutrophils # 8.2 H (1.3-7.7) k/uL Sodium 136 L (137-145) mmol/L Glucose 73 L (74-99) mg/dL Calcium (8.4-10.2) mg/dL Magnesium 1.5 L (1.6-2.3) mg/dL AST 37 H (14-36) U/L ALT 50 H (4-34) U/L Lactate Dehydrogenase 748 H (313-618) U/L Total Protein 6.1 L (6.3-8.2) g/dL Albumin 3.2 L (3.5-5.0) g/dL Urine Appearance Cloudy H (Clear) Ur Specific [place] 1.036 H (1.001-1.035) Urine Protein 2+ H (Negative) Urine Blood Large H (Negative) Ur Leukocyte Esterase Large H (Negative) Urine RBC 83 H (0-5) /hpf Urine WBC 78 H (0-5) /hpf Ur Squamous Epith Cells 19 H (0-4) /hpf Amorphous Sediment Rare H (None) /hpf Urine Bacteria Rare H (None) /hpf Urine Mucus Many H (None) /hpf 09/22/19 Range/Units 06:11 WBC (3.8-10.6) k/uL Neutrophils # (1.3-7.7) k/uL Sodium (137-145) mmol/L Glucose (74-99) mg/dL Calcium 7.7 L (8.4-10.2) mg/dL Magnesium 3.5 H (1.6-2.3) mg/dL AST 62 H (14-36) U/L ALT 69 H (4-34) U/L Lactate Dehydrogenase (313-618) U/L Total Protein 5.9 L (6.3-8.2) g/dL Albumin 3.1 L (3.5-5.0) g/dL Urine Appearance (Clear) Ur Specific [place] (1.001-1.035) Urine Protein (Negative) Urine Blood (Negative) Ur Leukocyte Esterase (Negative) Urine RBC (0-5) /hpf Urine WBC (0-5) /hpf Ur Squamous Epith Cells (0-4) /hpf Amorphous Sediment (None) /hpf Urine Bacteria (None) /hpf Urine Mucus (None) /hpf Microbiology - Last 24 Hours (Table) 09/21/19 19:05 Urine Culture - Preliminary Urine,Voided Assessment and Plan (1) Cardiomegaly Current Visit: Yes Status: Acute Code(s): I51.7 - CARDIOMEGALY SNOMED Code(s): 2970229 (2) Pre-eclampsia in period Current Visit: Yes Status: Acute Code(s): O14.95 - UNSPECIFIED PRE- ECLAMPSIA, COMPLICATING THE PUERPERIUM SNOMED Code(s): 174888349 (3) Hypertension Current Visit: Yes Status: Acute Code(s): I10 - ESSENTIAL (PRIMARY) HYPERTENSION SNOMED Code(s): 87069213 Plan: The patient has been admitted for evaluation and treatment for preeclampsia. Magnesium sulfate has been started with a 4 g bolus in the emergency department followed by 2 g per hour for seizure prophylaxis. Given her cardiomegaly and continued problems with hypertension through the night despite beta ricci usage, there is a concern for the possibility of a cardiomyopathy. General medicine has been consulted in order to help manage her blood pressures as has cardiology to evaluate for the possibility of cardiomyopathy. She does not have a picture at this time consistent with possible pulmonary AB was in there still may be some concern for this. Magnesium sulfate will be run for 24 hours at which time it will be discontinued. Remainder of the medical management will be left in the hands of cardiology and the hospitalist service. She is not nursing and does not require breast pump order she will call or any particular specific or interventional care for her status.
--- NOTE | 2019-09-22 08:23 | P.CRDCN ---
History of Present Illness Consult date: 09/22/19 Requesting physician: Addi Connors Consult reason: shortness of breath Chief complaint: Shortness of breath, bilateral lower extremity edema History of present illness: This is a 29-year-old female, 5 days post vaginal delivery of a healthy baby boy, she delivered at 38 weeks. She has no history of hypertension, no diabetes, no hyperlipidemia, she does smoke. She is not currently nursing the baby. She presents to the hospital with symptoms of progressively worsening shortness of breath and bilateral lower extremity edema which she states has been going on for the past 3 days. Her chest x-ray on presentation here shows mild pleural reaction at the lung bases questionable right lower lobe pneumonia according to the report. Heart is borderline enlarged. Venous duplex study of bilateral lower extremities negative for DVT. Her EKG shows a normal sinus rhythm with nonspecific ST-T wave changes. Blood pressure on arrival here 177/100, heart rate in the 70s, 99% on room air. Her blood pressure this morning 188/98, heart rate in the 80s, 94% on room air. White blood cell count 10.9, hemoglobin 12.2, platelet count 190. Sodium 137, potassium 4.2, BUN 10, creatinine 0.5. Magnesium on admission 1.5, 3.5 this morning. AST 62, ALT 69. Troponin 0.016, BNP . Positive UTI. At the time of my examination this morning, she does state that her breathing is slightly improved, she was given Lasix on arrival here, her weight is down and she is put out good urine. Past Medical History Past Medical History: No Reported History History of Any Multi-Drug Resistant Organisms: None Reported Additional Past Surgical History / Comment(s): cyst removed from tailbone, vaginal delivery 09/15 at [facility] Past Psychological History: No Psychological Hx Reported Smoking Status: Current every day smoker Past Alcohol Use History: Rare Past Drug Use History: Marijuana Medications and Allergies Home Medications Medication Instructions Recorded Confirmed Type Ibuprofen [Motrin Ib] 800 mg PO TID PRN 09/21/19 09/21/19 History Allergies Allergy/AdvReac Type Severity Reaction Status Date / Time No Known Allergies Allergy Verified 09/21/19 19:48 Physical Exam Vitals: Vital Signs Temp Pulse Pulse Resp BP BP Pulse Ox 09/22/19 07:00 85 189/98 09/22/19 05:00 97.7 F 83 18 167/84 94 L 09/22/19 04:00 83 18 09/22/19 02:55 80 18 178/95 09/22/19 01:00 85 18 166/85 95 09/21/19 23:55 84 18 09/21/19 23:00 98.0 F 84 18 163/81 95 09/21/19 22:02 98.1 F 76 18 153/72 95 09/21/19 22:00 84 18 09/21/19 21:40 81 20 135/72 96 09/21/19 21:10 81 18 127/80 97 09/21/19 20:50 77 18 139/98 97 09/21/19 20:30 77 19 160/80 98 09/21/19 20:10 76 20 158/82 96 09/21/19 20:00 75 21 155/82 97 09/21/19 19:50 75 23 155/82 97 09/21/19 19:40 77 19 160/80 97 09/21/19 19:30 72 18 165/86 97 09/21/19 19:20 73 24 165/86 95 09/21/19 19:10 165/86 09/21/19 19:00 66 20 173/87 98 09/21/19 18:50 61 15 169/88 97 09/21/19 18:40 66 18 169/88 97 09/21/19 18:30 70 20 159/112 97 09/21/19 18:20 71 21 159/112 98 09/21/19 18:17 20 09/21/19 18:10 76 21 09/21/19 17:54 98.6 F 71 18 177/100 99 Intake and Output 09/21/19 09/22/19 09/22/19 22:59 06:59 14:59 Intake Total 360 Output Total 1650 Balance -1650 360 Intake: Oral 360 Output: Urine 1650 Other: Voiding Method Toilet Toilet # Voids 1 Weight 145.15 kg 142.9 kg PHYSICAL EXAMINATION: GENERAL: 29-year-old female in no acute distress at the time of my examination HEENT: Head is atraumatic, normocephalic. Pupils equal, round. Sclera anicteric. Conjunctiva are clear. Mucous membranes of the mouth are moist. Neck is supple. There is mild elevated jugular venous pressure. No carotid bruit is heard. HEART EXAMINATION: Heart S1, S2 normal. No murmur or gallop heard. CHEST EXAMINATION: Lungs reveal mild diminished air entry to the bases bilaterally ABDOMEN: Soft, nontender. Bowel sounds are heard. No organomegaly noted. EXTREMITIES: 2+ peripheral pulses with trace to 1+ evidence of peripheral edema and no calf tenderness noted. NEUROLOGIC patient is awake, alert and oriented 3 . Results 09/22/19 06:11 09/22/19 06:11 Cardiac Enzymes 09/21/19 09/21/19 09/22/19 Range/Units 18:15 18:15 06:11 AST 37 H 62 H (14-36) U/L Lactate Dehydrogenase 748 H (313-618) U/L Troponin I 0.016 (0.000-0.034) ng/mL CBC 09/21/19 09/22/19 Range/Units 18:15 06:11 WBC 10.4 10.9 H (3.8-10.6) k/uL RBC 4.33 4.13 (3.80-5.40) m/uL Hgb 12.6 12.2 (11.4-16.0) gm/dL Hct 39.2 38.1 (34.0-46.0) % Plt Count 203 190 (150-450) k/uL Comprehensive Metabolic Panel 09/21/19 09/22/19 Range/Units 18:15 06:11 Sodium 136 L 137 (137-145) mmol/L Potassium 4.3 4.2 (3.5-5.1) mmol/L Chloride 107 105 (98-107) mmol/L Carbon Dioxide 27 25 (22-30) mmol/L BUN 14 10 (7-17) mg/dL Creatinine 0.52 0.54 (0.52-1.04) mg/dL Glucose 73 L 88 (74-99) mg/dL Calcium 8.4 7.7 L (8.4-10.2) mg/dL AST 37 H 62 H (14-36) U/L ALT 50 H 69 H (4-34) U/L Alkaline Phosphatase 102 107 (38-126) U/L Total Protein 6.1 L 5.9 L (6.3-8.2) g/dL Albumin 3.2 L 3.1 L (3.5-5.0) g/dL Current Medications Generic Name Dose Route Start Last Admin Trade Name Freq PRN Reason Stop Dose Admin Acetaminophen 650 mg 09/22/19 02:26 09/22/19 02:53 Tylenol Tab PO 650 mg Q6HR PRN Administration Fever and/ or Pain Hydrocodone Bitart/Acetaminophen 1 each 09/22/19 07:50 [place] 5-325 PO Q6HR PRN Pain Furosemide 20 mg 09/22/19 08:00 Lasix IV Q12HR PRIYA Lactated Ringer's 1,000 mls @ 50 mls/hr 09/21/19 22:45 09/21/19 22:56 Lactated Ringers IV 50 mls/hr .Q20H PRIYA Administration Magnesium Sulfate 20 gm/ 500 mls @ 50 mls/hr 09/22/19 07:00 09/22/19 06:28 Dextrose/Water IV 2 gm/hr .Q10H PRIYA 50 mls/hr Administration 2 GM/HR Labetalol HCl 200 mg 09/22/19 06:00 09/22/19 06:07 Trandate PO 200 mg BID@0600,1800 PRIYA Administration Naloxone HCl 0.2 mg 09/21/19 20:09 Narcan IV Q2M PRN Opioid Reversal Intake and Output 09/21/19 09/22/19 09/22/19 22:59 06:59 14:59 Intake Total 360 Output Total 1650 Balance -1650 360 Intake: Oral 360 Output: Urine 1650 Other: Voiding Method Toilet Toilet # Voids 1 Weight 145.15 kg 142.9 kg 09/22/19 06:11 09/22/19 06:11 EKG Interpretations (text) Her EKG shows a normal sinus rhythm with nonspecific ST-T wave changes Assessment and Plan Plan: Assessment and plan #1 symptoms of shortness of breath with bilateral lower extremity edema, suggestive congestive cardiac failure, possible cardiomyopathy #2 status post vaginal delivery of a healthy baby boy 3 days ago at 38 weeks #3 nicotine dependence #4 accelerated hypertension #5 hypomagnesemia, replaced #6 possible pneumonia Plan We will obtain an echocardiogram with Doppler study. Continue beta ricci. Add Hydralazine. Consult Pulmonary and order procalcitonin. DNP note has been reviewed, I agree with a documented findings and plan of care. Patient was seen and examined.
[2019-09-22] MEDS: HYDROcodone/APAP 5-325MG 1 EACH TAB PO PRN ×3 (08:38→22:04)
[2019-09-22] MEDS: FUROSEMIDE 10 MG/ML 2 ML VIAL IV SCH ×4 (08:38→23:59)
[2019-09-22] MEDS ORDERED: LABETALOL 200 MG TAB PO STA (09:00)
--- NOTE | 2019-09-22 10:45 | P.CNPUL ---
History of Present Illness Consult date: 09/22/19 Reason for consult: dyspnea, pleural effusion, abnormal CXR/CT History of present illness: 29-year-old -[place] female patient of Dr. Boudreaux, with recent history of childbirth, to a term-baby boy on 09/16/2019 at the [facility] under the care of Dr. Crabtree, and it was a normal vaginal delivery, without complications. Patient was discharged home on September 18, 2019. On Friday she noted increasing swelling in her lower extremities, and shortness of breath. She does admit to some light pressure in her chest with exertion, she did have an episode of cough and she cleared some greenish colored phlegm, however her cough resolved. She denied any fever or chills, denied any hemoptysis, any pleuritic chest discomfort. Patient is a smoker, she smokes 7 cigarettes per day for 10 years. Patient has no significant medical history, no prior history of asthma no hypertension, she has a history of 3 normal pregnanci es with 3 term vaginal deliveries without complications. No history of infections or STDs. Workup in emergency department included chest x-ray with bilateral pleural effusions and a suggestion of an infiltrate in the right lower lobe. Initial blood work showed white blood cell count of 10.4, hemoglobin of 12.9, platelet count of 203, normal differential, sodium is 136, the rest of electrolytes and renal profile were within normal limits, magnesium of 1.5, AST of 37, ALT of 50, lactate dehydrogenase of 748, troponin was 0.016, proBNP was 399, urinalysis showed 2+ protein, large amount of leuk trase, RBCs and WBCs. Patient was started on diuretics Lasix 20 mg every 12 hours, and was given empiric antibiotics for possibility of right lower lobe pneumonia, and we were consulted to evaluate the patient for possibility of right lower lobe pneumonia Review of Systems All systems: negative Constitutional: Denies chills, Denies fever Eyes: denies blurred vision, denies pain Ears, nose, mouth and throat: Denies headache, Denies sore throat Cardiovascular: Denies chest pain, Denies shortness of breath Respiratory: Reports cough with sputum, Reports dyspnea, Denies cough Gastrointestinal: Denies abdominal pain, Denies diarrhea, Denies nausea, Denies vomiting Genitourinary: Denies dysuria, Denies hematuria Musculoskeletal: Denies myalgias Musculoskeletal: bilateral: ankle swelling, foot swelling Integumentary: Denies pruritus, Denies rash Neurological: Denies numbness, Denies weakness Psychiatric: Denies anxiety, Denies depression Endocrine: Denies fatigue, Denies weight change Past Medical History Past Medical History: No Reported History History of Any Multi-Drug Resistant Organisms: None Reported Additional Past Surgical History / Comment(s): cyst removed from tailbone, vaginal delivery 09/15 at [facility] Past Psychological History: No Psychological Hx Reported Smoking Status: Current every day smoker Past Alcohol Use History: Rare Past Drug Use History: Marijuana Medications and Allergies Home Medications Medication Instructions Recorded Confirmed Type Ibuprofen [Motrin Ib] 800 mg PO TID PRN 09/21/19 09/21/19 History Allergies Allergy/AdvReac Type Severity Reaction Status Date / Time No Known Allergies Allergy Verified 09/21/19 19:48 Physical Exam Vitals: Vital Signs Temp Pulse Pulse Resp BP BP BP 09/22/19 09:30 80 18 165/81 181/95 09/22/19 07:00 85 189/98 09/22/19 05:00 97.7 F 83 18 167/84 09/22/19 04:00 83 18 09/22/19 02:55 80 18 178/95 09/22/19 01:00 85 18 166/85 09/21/19 23:55 84 18 09/21/19 23:00 98.0 F 84 18 163/81 09/21/19 22:02 98.1 F 76 18 153/72 09/21/19 22:00 84 18 09/21/19 21:40 81 20 135/72 09/21/19 21:10 81 18 127/80 09/21/19 20:50 77 18 139/98 09/21/19 20:30 77 19 160/80 09/21/19 20:10 76 20 158/82 09/21/19 20:00 75 21 155/82 09/21/19 19:50 75 23 155/82 09/21/19 19:40 77 19 160/80 09/21/19 19:30 72 18 165/86 09/21/19 19:20 73 24 165/86 09/21/19 19:10 165/86 09/21/19 19:00 66 20 173/87 09/21/19 18:50 61 15 169/88 09/21/19 18:40 66 18 169/88 09/21/19 18:30 70 20 159/112 09/21/19 18:20 71 21 159/112 09/21/19 18:17 20 09/21/19 18:10 76 21 09/21/19 17:54 98.6 F 71 18 177/100 Pulse Ox 09/22/19 09:30 94 L 09/22/19 07:00 09/22/19 05:00 94 L 09/22/19 04:00 09/22/19 02:55 09/22/19 01:00 95 09/21/19 23:55 09/21/19 23:00 95 09/21/19 22:02 95 09/21/19 22:00 09/21/19 21:40 96 09/21/19 21:10 97 09/21/19 20:50 97 09/21/19 20:30 98 09/21/19 20:10 96 09/21/19 20:00 97 09/21/19 19:50 97 09/21/19 19:40 97 09/21/19 19:30 97 09/21/19 19:20 95 09/21/19 19:10 09/21/19 19:00 98 09/21/19 18:50 97 09/21/19 18:40 97 09/21/19 18:30 97 09/21/19 18:20 98 09/21/19 18:17 09/21/19 18:10 09/21/19 17:54 99 Intake and Output 09/21/19 09/22/19 09/22/19 22:59 06:59 14:59 Intake Total 360 Output Total 1650 700 Balance -1650 -340 Intake: Oral 360 Output: Urine 1650 700 Other: Voiding Method Toilet Toilet # Voids 1 Weight 145.15 kg 142.9 kg GENERAL EXAM: Alert, very pleasant, 29-year-old -[place] female, with somewhat of a flat affect with a room air pulse ox of 94%, comfortable in no apparent distress. HEAD: Normocephalic/atraumatic. EYES: Normal reaction of pupils, equal size. Conjunctiva pink, sclera white. NOSE: Clear with pink turbinates. THROAT: No erythema or exudates. NECK: No masses, no JVD, no thyroid enlargement, no adenopathy. CHEST: No chest wall deformity. Symmetrical expansion. LUNGS: Equal air entry with minimal bibasilar fine crackles, but no wheeze, rhonchi or dullness. CVS: Regular rate and rhythm, normal S1 and S2, no gallops, no murmurs, no rubs ABDOMEN: Soft, nontender. No hepatosplenomegaly, normal bowel sounds, no guarding or rigidity. EXTREMITIES: No clubbing, mild pretibial nonpitting edema, no cyanosis, 2+ pu lses and upper and lower extremities. MUSCULOSKELETAL: Muscle strength and tone normal. SPINE: No scoliosis or deformity SKIN: No rashes CENTRAL NERVOUS SYSTEM: Alert and oriented -3. No focal deficits, tone is normal in all 4 extremities. PSYCHIATRIC: Alert and oriented -3. Appropriate affect. Intact judgment and insight. Results - Laboratory Findings CBC and BMP: 09/22/19 06:11 09/22/19 06:11 Abnormal lab findings: Abnormal Labs 09/21/19 09/21/19 09/22/19 18:15 19:05 06:11 WBC 10.9 H Neutrophils # 8.2 H Sodium 136 L Glucose 73 L Calcium Magnesium 1.5 L AST 37 H ALT 50 H Lactate Dehydrogenase 748 H Total Protein 6.1 L Albumin 3.2 L Urine Appearance Cloudy H Ur Specific [place] 1.036 H Urine Protein 2+ H Urine Blood Large H Ur Leukocyte Esterase Large H Urine RBC 83 H Urine WBC 78 H Ur Squamous Epith Cells 19 H Amorphous Sediment Rare H Urine Bacteria Rare H Urine Mucus Many H 09/22/19 06:11 WBC Neutrophils # Sodium Glucose Calcium 7.7 L Magnesium 3.5 H AST 62 H ALT 69 H Lactate Dehydrogenase Total Protein 5.9 L Albumin 3.1 L Urine Appearance Ur Specific [place] Urine Protein Urine Blood Ur Leukocyte Esterase Urine RBC Urine WBC Ur Squamous Epith Cells Amorphous Sediment Urine Bacteria Urine Mucus - Diagnostic Findings Chest x-ray: report reviewed, image reviewed Additional studies: Lower extremity Dopplers Assessment and Plan Plan: Assessment: #1. Dyspnea and lower extremity swelling related to fluid overload, chest x-ray showed bilateral pleural effusions, and borderline enlargement of the heart and a suggestion of an infiltrate in the right lower lobe. POssibility of pneumonia is less likely but patient was given a dose of empiric antibiotics in the emergency department, pro-calcitonin is pending. Echocardiogram is pending. Lower extremity Dopplers were negative for DVT #2. Recent vaginal delivery at 38 week gestation, on 09/16/2019 at [facility], without complications #3. preeclampsia #4. Hypertension #5. Current every day smoker, smokes 7 cigarettes a day for 10 years Plan: Pro-calcitonin has been sent, and is pending, patient is afebrile, no leukocytosis, no cough or congestion, no phlegm production, patient's symptoms and chest x-ray findings are more consistent with fluid volume overload, and the possibility of pneumonia is less likely, patient has received a dose of empiric antibiotics in the emergency department, she is afebrile. She is being diuresed, she's feeling better, her dyspnea improved with diuresis, still has some residual nonpitting edema in her lower extremities, lower extreme he Dopplers were negative. Cardiogram is pending, cardiology is following, will continue to follow and make further recommendations I performed a history & physical examination of the patient and discussed their management with my nurse practitioner, Valerie Khoury. I reviewed the nurse practitioner's note and agree with the documented findings and plan of care. Lung sounds are positive for mild fine rales at the bases. The findings and the impression was discussed with the patient. I attest to the documentation by the nurse practitioner. Time with Patient: Greater than 30
--- NOTE | 2019-09-22 11:00 | ECHOF ---
Referral Reason:Cardiomegaly MEASUREMENTS -------- HEIGHT: 165.1 cm WEIGHT: 142.9 kg BP: 167/84 RVIDd: 3.2 cm (< 3.3) IVSd: 1.3 cm (0.6 - 1.1) LVIDd: 5.2 cm (3.9 - 5.3) LVPWd: 1.3 cm (0.6 - 1.1) IVSs: 1.6 cm LVIDs: 3.6 cm LVPWs: 1.8 cm LA Diam: 3.9 cm (2.7 - 3.8) LAESV Index (A-L): 21.82 ml/m Ao Diam: 3.0 cm (2.0 - 3.7) AV Cusp: 2.2 cm (1.5 - 2.6) MV EXCURSION: 13.189 mm (> 18.000) MV EF SLOPE: 103 mm/s (70 - 150) EPSS: 0.6 cm MV E Yovani: 1.18 m/s MV DecT: 153 ms MV A Yovani: 0.95 m/s MV E/A Ratio: 1.24 RAP: 15.00 mmHg RVSP: 55.80 mmHg TAPSE: 22.26 mm FINDINGS -------- Sinus rhythm. This was a technically adequate study. The left ventricular size is normal. There is mild concentric left ventricular hypertrophy. Overa ll left ventricular systolic function is normal with, an EF between 60 - 65 %. The right ventricle is normal in size. Normal LA size by volume 22+/-6 ml/m2. The right atrium is normal in size. Interatrial and interventricular septum intact. The aortic valve is trileaflet and appears structurally normal. Mild mitral regurgitation is present. Mild tricuspid regurgitation present. There is moderate to severe pulmonary hypertension. The rig ht ventricular systolic pressure, as measured by Doppler, is 55.80mmHg. There is no pulmonic regurgitation present. The aortic root size is normal. The inferior vena cava is dilated with no significant inspiratory collapse which is consistent estima akin right atrial pressure of >15 mmHg. There is no pericardial effusion. CONCLUSIONS -------- 1. Sinus rhythm. 2. This was a technically adequate study. 3. The left ventricular size is normal. 4. There is mild concentric left ventricular hypertrophy. 5. Overall left ventricular systolic function is normal with, an EF between 60 - 65 %. 6. The right ventricle is normal in size. 7. Normal LA size by volume 22+/-6 ml/m2. 8. The right atrium is normal in size. 9. Interatrial and interventricular septum intact. 10. The aortic valve is trileaflet and appears structurally normal. 11. Mild mitral regurgitation is present. 12. Mild tricuspid regurgitation present. 13. There is moderate to severe pulmonary hypertension. 14. The right ventricular systolic pressure, as measured by Doppler, is 55.80mmHg. 15. There is no pulmonic regurgitation present. 16. The aortic root size is normal. 17. The inferior vena cava is dilated with no significant inspiratory collapse which is consistent es timated right atrial pressure of >15 mmHg. 18. There is no pericardial effusion. MANAGER OF ORGANIZATIONAL DEVELOPMENT: Jazmine Samson RDCS
--- NOTE | 2019-09-22 12:18 | CT ---
EXAMINATION TYPE: CT chest angio for PE DATE OF EXAM: 09/22/2019 COMPARISON: Chest x-ray dated 09/21/2019 HISTORY: pulmonary hypertension post CT DLP: 920.5 mGycm. Automated Exposure Control for Dose Reduction was Utilized. CONTRAST: CTA scan of the thorax is performed with IV Contrast, patient injected with 100 mL of Isovue 370, pul monary embolism protocol. MIP Images are created on CT scanner and reviewed. FINDINGS: LUNGS: There are small bilateral dependent pleural effusions. There is fluid in the right minor and m ajor fissures. Bilateral enhancing compressive subsegmental bibasilar atelectasis is seen. Some patch y geographic airspace disease at the lower lobes is favored to represent volume overload rather than infectious etiology. No suspicious pulmonary mass. There is no pleural effusion or pneumothorax seen . The tracheobronchial tree is patent. MEDIASTINUM: There is suboptimal enhancement of the pulmonary artery and its branches, there is no ev idence for central pulmonary embolism. There are no greater than 1 cm hilar or mediastinal lymph nod es. The heart is enlarged. No sizable pericardial effusion. Soft tissue density in the anterior supe rior mediastinum likely represents residual thymic tissue. Main pulmonary artery is upper limits norm al size measuring 2.9 cm. OTHER: Mild multilevel degenerative change of the spine. IMPRESSION: 1. Fluid overload with small bilateral dependent layering pleural effusions and associated atelectasi s. Scattered groundglass opacities are favored to be on the basis of interstitial fluid overload rath er than pneumonia. 2. No CT evidence of central or segmental pulmonary embolus. Subsegmental pulmonary arteries are limi akin by bolus timing. 3. Upper limits of normal size of the Main pulmonary artery that may clinically correlate with pulmon arlyn hypertension. 4. Density in the anterior superior mediastinum likely represents residual thymic tissue.
--- NOTE | 2019-09-22 13:13 | P.CONS ---
History of Present Illness - Reason for Consult Consult date: 09/22/19 Medical management - Chief Complaint Shortness of breath - History of Present Illness Patient is a 29-year-old female with a known history of smoking and marijuana use who recently had a full-term normal vaginal baby delivery on the 09/16/2019 without complications, was discharged on 09/18/2019. On 09/19/2019 patient noticed having increased lower extremity swelling and shortness of breath. Pa ella was having cough with minimal greenish colored sputum x1 and also chest discomfort when taking deep breath. Denied any complaints of fever or chills. No nausea vomiting or abdominal pain or diarrhea. Denied any sick contacts at home. Denied any headache or dizziness. Denied any dysuria or hematuria or yellowish discoloration of urine. Blood pressure on admission was 177/100. No tachycardia. Patient was saturating well on room air on admission. Patient was also complaining of toothache and could not follow up with her dentist due to her appointment was canceled. Chest x-ray showed mild pleural reaction at the lung bases. Right lower lobe pneumonia. Heart is borderline enlarged. WBC 10.4, hemoglobin 12.9 and platelets 203 Sodium 136, potassium 4.3, magnesium 1.4 AST 37 ALT 50 and LVH 748 Troponin 1 negative, BNP 399. urinalysis showed cloudy with 2+ protein, large leukocyte esterase and elevated RBCs, WBCs and squamous epithelial cells. Review of Systems Constitutional: Patient denies any fever or chills . No generalized weakness or weight loss. Abdomen: Patient denied nausea vomiting and diarrhea and abdominal pain. Cardiovascular: Patient does have chest pressure, shortness of breath and leg swelling. No palpitations.. Respiratory: patient denied any cough is from production. No shortness of breath Neurologic: Patient denied any numbness or tingling headache. Musculoskeletal: Patient denies any complaints of joint swelling or deformity. Skin: Negative Psychiatric: Negative Endocrine: No heat or cold intolerance. No recent weight gain. Genitourinary: No dysuria or hematuria. All other 14 point ROS negative except the above Past Medical History Past Medical History: No Reported History History of Any Multi-Drug Resistant Organisms: None Reported Additional Past Surgical History / Comment(s): cyst removed from tailbone, vaginal delivery 09/15 at [facility] Past Psychological History: No Psychological Hx Reported Smoking Status: Current every day smoker Past Alcohol Use History: Rare Past Drug Use History: Marijuana Medications and Allergies Home Medications Medication Instructions Recorded Confirmed Type Ibuprofen [Motrin Ib] 800 mg PO TID PRN 09/21/19 09/21/19 History Allergies Allergy/AdvReac Type Severity Reaction Status Date / Time No Known Allergies Allergy Verified 09/21/19 19:48 Physical Exam Vitals: Vital Signs Temp Pulse Pulse Resp BP BP BP 09/22/19 11:00 78 18 148/72 179/88 09/22/19 09:30 80 18 165/81 181/95 09/22/19 07:00 85 189/98 09/22/19 05:00 97.7 F 83 18 167/84 09/22/19 04:00 83 18 09/22/19 02:55 80 18 178/95 09/22/19 01:00 85 18 166/85 09/21/19 23:55 84 18 09/21/19 23:00 98.0 F 84 18 163/81 09/21/19 22:02 98.1 F 76 18 153/72 09/21/19 22:00 84 18 09/21/19 21:40 81 20 135/72 09/21/19 21:10 81 18 127/80 09/21/19 20:50 77 18 139/98 09/21/19 20:30 77 19 160/80 09/21/19 20:10 76 20 158/82 09/21/19 20:00 75 21 155/82 09/21/19 19:50 75 23 155/82 09/21/19 19:40 77 19 160/80 09/21/19 19:30 72 18 165/86 09/21/19 19:20 73 24 165/86 09/21/19 19:10 165/86 09/21/19 19:00 66 20 173/87 09/21/19 18:50 61 15 169/88 09/21/19 18:40 66 18 169/88 09/21/19 18:30 70 20 159/112 09/21/19 18:20 71 21 159/112 09/21/19 18:17 20 09/21/19 18:10 76 21 09/21/19 17:54 98.6 F 71 18 177/100 Pulse Ox 09/22/19 11:00 94 L 09/22/19 09:30 94 L 09/22/19 07:00 09/22/19 05:00 94 L 09/22/19 04:00 09/22/19 02:55 09/22/19 01:00 95 09/21/19 23:55 09/21/19 23:00 95 09/21/19 22:02 95 09/21/19 22:00 09/21/19 21:40 96 09/21/19 21:10 97 09/21/19 20:50 97 09/21/19 20:30 98 09/21/19 20:10 96 09/21/19 20:00 97 09/21/19 19:50 97 09/21/19 19:40 97 09/21/19 19:30 97 09/21/19 19:20 95 09/21/19 19:10 09/21/19 19:00 98 09/21/19 18:50 97 09/21/19 18:40 97 09/21/19 18:30 97 09/21/19 18:20 98 09/21/19 18:17 09/21/19 18:10 09/21/19 17:54 99 Intake and Output 09/21/19 09/22/19 09/22/19 22:59 06:59 14:59 Intake Total 360 Output Total 1650 700 Balance -1650 -340 Intake: Oral 360 Output: Urine 1650 700 Other: Voiding Method Toilet Toilet # Voids 1 Weight 145.15 kg 142.9 kg PHYSICAL EXAMINATION: Patient is lying in the bed comfortably, no acute distress, awake alert and oriented.. HEENT: Normocephalic. Neck is supple. Pupils reactive. Nostrils clear. Oral cavity is moist. Ears reveal no drainage. Neck reveals no JVD, carotid bruits, or thyromegaly. CHEST EXAMINATION: Trachea is central. Symmetrical expansion. Bilateral coarse breath sounds. No wheezing. Nonlabored breathing. CARDIAC: Normal S1, S2 with no gallops. No murmurs ABDOMEN: Soft. Bowel sounds normal. No organomegaly. No abdominal bruits. Extremities: reveal no edema. No clubbing or cyanosis Neurologically awake, alert, oriented x3 with well-coordinated movements. No focal deficits noted Skin: No rash or skin lesions. Psychiatric: Coperative. Nonsuicidal Musculoskeletal: No joint swelling or deformity. Normal range of motion. Results CBC & Chem 7: 09/22/19 06:11 09/22/19 06:11 Labs: Abnormal Lab Results - Last 24 Hours (Table) 09/21/19 09/21/19 09/22/19 Range/Units 18:15 19:05 06:11 WBC 10.9 H (3.8-10.6) k/uL Neutrophils # 8.2 H (1.3-7.7) k/uL Sodium 136 L (137-145) mmol/L Glucose 73 L (74-99) mg/dL Calcium (8.4-10.2) mg/dL Magnesium 1.5 L (1.6-2.3) mg/dL AST 37 H (14-36) U/L ALT 50 H (4-34) U/L Lactate Dehydrogenase 748 H (313-618) U/L Total Protein 6.1 L (6.3-8.2) g/dL Albumin 3.2 L (3.5-5.0) g/dL Urine Appearance Cloudy H (Clear) Ur Specific [place] 1.036 H (1.001-1.035) Urine Protein 2+ H (Negative) Urine Blood Large H (Negative) Ur Leukocyte Esterase Large H (Negative) Urine RBC 83 H (0-5) /hpf Urine WBC 78 H (0-5) /hpf Ur Squamous Epith Cells 19 H (0-4) /hpf Amorphous Sediment Rare H (None) /hpf Urine Bacteria Rare H (None) /hpf Urine Mucus Many H (None) /hpf 09/22/19 Range/Units 06:11 WBC (3.8-10.6) k/uL Neutrophils # (1.3-7.7) k/uL Sodium (137-145) mmol/L Glucose (74-99) mg/dL Calcium 7.7 L (8.4-10.2) mg/dL Magnesium 3.5 H (1.6-2.3) mg/dL AST 62 H (14-36) U/L ALT 69 H (4-34) U/L Lactate Dehydrogenase (313-618) U/L Total Protein 5.9 L (6.3-8.2) g/dL Albumin 3.1 L (3.5-5.0) g/dL Urine Appearance (Clear) Ur Specific [place] (1.001-1.035) Urine Protein (Negative) Urine Blood (Negative) Ur Leukocyte Esterase (Negative) Urine RBC (0-5) /hpf Urine WBC (0-5) /hpf Ur Squamous Epith Cells (0-4) /hpf Amorphous Sediment (None) /hpf Urine Bacteria (None) /hpf Urine Mucus (None) /hpf Microbiology - Last 24 Hours (Table) 09/21/19 19:05 Urine Culture - Preliminary Urine,Voided Assessment and Plan Assessment: Exertional dyspnea and leg swelling with chest x-ray finding of bilateral effusions. acute CHF/ cardiomyopathy. BNP slightly elevated at 399 Possible right lower lobe pneumonia per chest x-ray. Hypomagnesemia - Preeclampsia. Patient does have elevated SBP >140, elevated liver enzymes twice normal level and proteinuria. We will check random urine protein creatinine ratio to see if it is greater than or equal to 0.3 Patient does not have thrombocytopenia R creatinine greater than 1.1. No pulmonary edema. No cerebral symptoms. Recent normal vaginal delivery on 09/16/2019 at [facility]. elevated blood pressure without any history of hypertension Ongoing nicotine addiction and occasional marijuana use Toothache DVT prophylaxis. Early ambulation. Plan: Patient will be continued on current dose of labetalol. Continued on IV Lasix 20 mg twice a day. Added hydralazine for better blood pressure is controlled. Patient is being continued on magnesium sulfate for 24 hours. We will follow up 2-D echocardiogram. CT angiogram was ordered to rule out PE. Bilateral lower extremity duplex scan is negative for DVT. Follow-up urine cultures. Continue with empiric antibiotics. Smoking cessation has been counseled extensively. will continue to follow closely and further recommendations based on the clinical course. Time with Patient: Greater than 30
[2019-09-22] MEDS: AZITHROMYCIN 500 MG TAB PO SCH (13:35)
[2019-09-22] MEDS: hydrALAZINE HCL 50 MG TAB PO SCH ×2 (14:56→22:00)
[2019-09-22 16:55] LABS: Protein/Creatinine Ratio,Urine 0.651
[2019-09-22] MEDS: LABETALOL 200 MG TAB PO SCH (17:51)
[2019-09-22] MEDS: LACTATED RINGERS 1,000 ML IV SCH (22:01)
[2019-09-22] MEDS: amLODIPine 5 MG TAB PO SCH (22:01)
[2019-09-23] MEDS ORDERED: LABETALOL 5 MG/ML VIAL MDV IVP STA ×2 (02:00→03:51)
[2019-09-23] MEDS: HYDROcodone/APAP 5-325MG 1 EACH TAB PO PRN ×2 (03:52→12:15)
[2019-09-23] MEDS: LABETALOL 200 MG TAB PO SCH ×2 (06:22→17:39)
[2019-09-23 06:43] LABS: Basophils % (A) 0 %; Eosinophils # (A) 0.3 k/uL (0-0.7); Eosinophils % (A) 3 %; HCT 39.5 % (34.0-46.0); HGB 12.5 gm/dL (11.4-16.0); Lymphocytes # (A) 1.9 k/uL (1.0-4.8); Lymphocytes % (A) 21 %; MCH 28.7 pg (25.0-35.0); MCHC 31.6 g/dL (31.0-37.0); MCV 90.9 fL (80.0-100.0); Mean Platelet Volume 8.6; Monocytes # (A) 0.3 k/uL (0-1.0); Monocytes % (A) 4 %; Neutrophils # (A) 6.5 k/uL (1.3-7.7); Neutrophils % (A) 71 %; Platelet Count 233 k/uL (150-450); RBC 4.35 m/uL (3.80-5.40); RDW 14.3 % (11.5-15.5); WBC 9.3 k/uL (3.8-10.6)
[2019-09-23 06:55] LABS: ALT 67 U/L (4-34); AST 34 U/L (14-36); African American GFR (CKD) >90 (>60 ml/min/1.73 sqM); Albumin 3.3 g/dL (3.5-5.0); Alkaline Phosphatase 112 U/L (38-126); Anion Gap 6 mmol/L; Blood Urea Nitrogen 10 mg/dL (7-17); Calcium 8.3 mg/dL (8.4-10.2); Carbon Dioxide 29 mmol/L (22-30); Chloride 102 mmol/L (98-107); Glucose 77 mg/dL (74-99); Non-African American GFR(CKD) >90 (>60 ml/min/1.73 sqM); Potassium 4.3 mmol/L (3.5-5.1); Sodium 137 mmol/L (137-145); Total Bilirubin 0.4 mg/dL (0.2-1.3); Total Protein 6.1 g/dL (6.3-8.2)
[2019-09-23] MEDS: FUROSEMIDE 10 MG/ML 2 ML VIAL IV SCH ×2 (07:01→21:06)
[2019-09-23] MEDS: hydrALAZINE HCL 50 MG TAB PO SCH ×3 (07:01→21:06)
[2019-09-23] MEDS: amLODIPine 5 MG TAB PO SCH (07:01)
[2019-09-23 08:02] VITALS: RESP 16
[2019-09-23] MEDS: AZITHROMYCIN 500 MG TAB PO SCH (08:04)
--- NOTE | 2019-09-23 08:52 | P.PN ---
Subjective Progress Note Date: 09/23/19 Principal diagnosis: preeclampsia The patient reports that she feels significantly better today. She denies any shortness of breath and has no edema or discomfort in her lower extremities. Vaginal bleeding is minimal with no uterine concerns of any kind. She is oth erwise up and ambulatory. She is tolerating a regular diet without problems. Objective - Vital Signs Vital signs: Vital Signs Temp 97 F L 09/22/19 23:00 Pulse 72 09/23/19 07:00 Resp 16 09/23/19 08:00 BP 154/70 09/23/19 07:00 Pulse Ox 100 09/23/19 07:00 Intake & Output 09/22/19 09/23/19 09/23/19 18:59 06:59 18:59 Intake Total 600 1500 222 Output Total 1999 1400 Balance -1400 100 222 Weight 139.7 kg Intake: Oral 600 1500 222 Output: Urine 1999 1399 Other: Voiding Method Toilet Toilet # Voids 2 - Exam In general, this is a well-developed, moderately obese white female in no acute distress. Her abdomen is nondistended, has normal active bowel sounds, soft, nontender, and without any palpable masses aside from the uterine fundus which is nontender and tonic well below the umbilicus. Her extremities are without an y cyanosis, clubbing, or edema and are nontender to palpation bilaterally. - Labs CBC & Chem 7: 09/23/19 05:47 09/23/19 05:47 Labs: Abnormal Lab Results - Last 24 Hours (Table) 09/23/19 09/23/19 Range/Units 05:47 05:47 Calcium 8.3 L (8.4-10.2) mg/dL Magnesium 2.4 H (1.6-2.3) mg/dL ALT 67 H (4-34) U/L Total Protein 6.1 L (6.3-8.2) g/dL Albumin 3.3 L (3.5-5.0) g/dL Microbiology - Last 24 Hours (Table) 09/21/19 19:05 Urine Culture - Final Urine,Voided Assessment and Plan (1) Cardiomegaly Current Visit: Yes Status: Acute Code(s): I51.7 - CARDIOMEGALY SNOMED Code(s): 4848013 (2) Pre-eclampsia in period Current Visit: Yes Status: Acute Code(s): O14.95 - UNSPECIFIED PRE- ECLAMPSIA, COMPLICATING THE PUERPERIUM SNOMED Code(s): 900800063 (3) Hypertension Current Visit: Yes Status: Acute Code(s): I10 - ESSENTIAL (PRIMARY) HYPERTENSION SNOMED Code(s): 44737948 Plan: Cardiomyopathy and pneumonia appeared to have been ruled out as has pulmonary embolism. At this point, she does continue to have some discrepancy between right side and left side blood pressures and blood pressures remain elevated despite 3 separate medications. If we are able to control her blood pressure as the day wears on, she is otherwise stable from an obstetric standpoint for discharge later this afternoon as long as instructions are given from either cardiology or internal medicine regarding her medications. I will await input from both internal medicine and cardiology for further disposition.
--- NOTE | 2019-09-23 10:32 | XR ---
EXAMINATION TYPE: XR chest 1V portable DATE OF EXAM: 09/23/2019 COMPARISON: Prior chest x-ray 09/21/2019, chest CT 09/22/2019 HISTORY: Congestive heart failure, pulmonary hypertension, abnormal chest CT TECHNIQUE: Single fronta l view of the chest is obtained. FINDINGS: There is no focal air space opacity, pleural effusion, or pneumothorax seen. The cardiac silhouette size is at the upper limits of normal for size, appearance and size may be accentuated by technique, patient is rotated. The osseous structures are intact. There are overlying cardiac leads . IMPRESSION: Borderline cardiac size as described. Suspect improvement in aeration.
--- NOTE | 2019-09-23 11:02 | P.PN ---
Subjective Progress Note Date: 09/23/19 This is a 29-year-old female, 5 days post vaginal delivery of a healthy baby boy, she delivered at 38 weeks. She has no history of hypertension, no diabetes, no hyperlipidemia, she does smoke. She is not currently nursing the baby. She presents to the hospital with symptoms of progressively worsening shortness of breath and bilateral lower extremity edema which she states has been going on for the past 3 days. Her chest x-ray on presentation here shows mild pleural reaction at the lung bases questionable right lower lobe pneumonia according to the report. Heart is borderline enlarged. Venous duplex study of bilateral lower extremities negative for DVT. Her EKG shows a normal sinus rhy thm with nonspecific ST-T wave changes. Blood pressure on arrival here 177/100, heart rate in the 70s, 99% on room air. Her blood pressure this morning 188/98, heart rate in the 80s, 94% on room air. White blood cell count 10.9, hemoglobin 12.2, platelet count 190. Sodium 137, potassium 4.2, BUN 10, creatinine 0.5. Magnesium on admission 1.5, 3.5 this morning. AST 62, ALT 69. Troponin 0.016, BNP [id number]. Positive UTI. At the time of my examination this morning, she does state that her breathing is slightly improved, she was given Lasix on arrival here, her weight is down and she is put out good urine. 09/23/2019 Patient seen and examined this morning, diuresed well through the night last night. Blood pressure in the left arm this morning 184/90, right arm 154/70, heart rate in the 70s. Echocardiogram with Doppler study was performed which revealed an ejection fraction of 60-65%. Moderate to severe pulmonary hypertension. Chest x-ray shows borderline cardiac size. Improvement in aeration Objective - Vital Signs Vital signs: Vital Signs Temp 98.5 F 09/23/19 09:00 Pulse 77 09/23/19 09:00 Resp 16 09/23/19 09:00 BP 158/80 09/23/19 09:00 Pulse Ox 94 L 09/23/19 09:00 Intake & Output 09/22/19 09/23/19 09/23/19 18:59 06:59 18:59 Intake Total 600 1500 222 Output Total 2000 1400 900 Balance -1400 100 -678 Weight 139.7 kg Intake: Oral 600 1500 222 Output: Urine 2000 1400 900 Other: Voiding Method Toilet Toilet # Voids 2 1 - Exam PHYSICAL EXAMINATION: GENERAL: 29-year-old female in no acute distress at the time of my examination HEENT: Head is atraumatic, normocephalic. Pupils equal, round. Sclera anicteric. Conjunctiva are clear. Mucous membranes of the mouth are moist. Neck is supple. There is mild elevated jugular venous pressure. No carotid bruit is heard. HEART EXAMINATION: Heart S1, S2 normal. No murmur or gallop heard. CHEST EXAMINATION: Lungs reveal mild diminished air entry to the bases bilaterally ABDOMEN: Soft, nontender. Bowel sounds are heard. No organomegaly noted. EXTREMITIES: 2+ peripheral pulses with trace to 1+ evidence of peripheral edema and no calf tenderness noted. NEUROLOGIC patient is awake, alert and oriented 3 - Labs CBC & Chem 7: 09/23/19 05:47 09/23/19 05:47 Labs: Abnormal Lab Results - Last 24 Hours (Table) 09/23/19 09/23/19 Range/Units 05:47 05:47 Calcium 8.3 L (8.4-10.2) mg/dL Magnesium 2.4 H (1.6-2.3) mg/dL ALT 67 H (4-34) U/L Total Protein 6.1 L (6.3-8.2) g/dL Albumin 3.3 L (3.5-5.0) g/dL Microbiology - Last 24 Hours (Table) 09/21/19 19:05 Urine Culture - Final Urine,Voided Assessment and Plan Plan: Assessment and plan #1 symptoms of shortness of breath with bilateral lower extremity edema, suggestive congestive cardiac failure, possible cardiomyopathy #2 status post vaginal delivery of a healthy baby boy 3 days ago at 38 weeks #3 nicotine dependence #4 accelerated hypertension #5 hypomagnesemia, replaced #6 possible pneumonia Plan We will discontinue the Norvasc and changed to Procardia XL. Continue that along with hydralazine, labetalol, and lisinopril. Patient had been initially recommended to stay in the hospital until tomorrow morning, she has a concerned about the care of her children at home. We told the patient she could go home later this afternoon from our perspective, she needs to monitor her blood pressures at home twice a day closely, and see her primary doctor within one week. She will follow-up in the cardiology office in 3 weeks. DNP note has been reviewed, I agree with a documented findings and plan of care. Patient was seen and examined.
--- NOTE | 2019-09-23 11:38 | P.PN ---
Subjective Progress Note Date: 09/23/19 29-year-old -Arm[place]ian female patient of Dr. Boudreaux, with recent history of childbirth, to a term-baby boy on 09/16/2019 at the [facility] under the care of Dr. Crabtree, and it was a normal vaginal delivery, without complications. Patient was discharged home on September 18, 2019. On Friday she noted increasing swelling in her lower extremities, and shortness of breath. She does admit to some light pressure in her chest with exertion, she did have an episode of cough and she cleared some greenish colored phlegm, however her cough resolved. She denied any fever or chills, denied any hemoptysis, any pleuritic chest discomfort. Patient is a smoker, she smokes 7 cigarettes per day for 10 years. Patient has no significant medical history, no prior history of asthma no hypertension, she has a history of 3 normal pregnancies with 3 term vaginal deliveries without complications. No history of infections or STDs. Workup in emergency department included chest x-ray with bilateral pleural effusions and a suggestion of an infiltrate in the right lower lobe. Initial blood work showed white blood cell count of 10.4, hemoglobin of 12.9, platelet count of 203, normal differential, sodium is 136, the rest of electrolytes and renal profile were within normal limits, magnesium of 1.5, AST of 37, ALT of 50, lactate dehydrogenase of 748, troponin was 0.016, proBNP was 399, urinalysis showed 2+ protein, large amount of leuk trase, RBCs and WBCs. Patient was started on diuretics Lasix 20 mg every 12 hours, and was given empiric antibiotics for possibility of right lower lobe pneumonia, and we were consulted to evaluate the patient for possibility of right lower lobe pneumonia On 09/23/2019 patient seen in follow-up on selective care unit. She has been diuresed, she is down by 5.3 kg in the last 24 hours, her breathing has significantly improved, lower extremity edema has improved, no fever or chills, cough or congestion, yesterday we obtain CT angiogram chest, which showed fluid overload with small bilateral dependent layering pleural effusions and associated atelectasis, scattered groundglass opacities favored to be on the basis of interstitial fluid overload. No evidence of central pulmonary embolism. Procalcitonin level came back low at 0.02 making the likelihood of bacterial pneumonia low. We can discontinue the antibiotics, patient's urinalysis did show evidence of leukocyte esterase, white blood cells and red blood cells but urine culture showed skin and genital sophie contamination. Patient has no symptoms currently, she states she had been treated on an outpatient basis with a UTI. Objective - Vital Signs Vital signs: Vital Signs Temp 98.5 F 09/23/19 09:00 Pulse 77 09/23/19 09:00 Resp 16 09/23/19 09:00 BP 158/80 09/23/19 09:00 Pulse Ox 94 L 09/23/19 09:00 Intake & Output 09/22/19 09/23/19 09/23/19 18:59 06:59 18:59 Intake Total 600 1500 222 Output Total 1999 1400 900 Balance -1400 100 -678 Weight 139.7 kg Intake: Oral 600 1500 222 Output: Urine 1999 1399 900 Other: Voiding Method Toilet Toilet # Voids 2 1 - Exam GENERAL EXAM: Alert, very pleasant, 29-year-old -Armenian female, with somewhat of a flat affect with a room air pulse ox of 94%, comfortable in no apparent distress. HEAD: Normocephalic/atraumatic. EYES: Normal reaction of pupils, equal size. Conjunctiva pink, sclera white. NOSE: Clear with pink turbinates. THROAT: No erythema or exudates. NECK: No masses, no JVD, no thyroid enlargement, no adenopathy. CHEST: No chest wall deformity. Symmetrical expansion. LUNGS: Equal air entry with minimal bibasilar fine crackles, but no wheeze, rhonchi or dullness. CVS: Regular rate and rhythm, normal S1 and S2, no gallops, no murmurs, no rubs ABDOMEN: Soft, nontender. No hepatosplenomegaly, normal bowel sounds, no guarding or rigidity. EXTREMITIES: No clubbing, mild pretibial nonpitting edema, no cyanosis, 2+ pulses and upper and lower extremities. MUSCULOSKELETAL: Muscle strength and tone normal. SPINE: No scoliosis or deformity SKIN: No rashes CENTRAL NERVOUS SYSTEM: Alert and oriented -3. No focal deficits, tone is normal in all 4 extremities. PSYCHIATRIC: Alert and oriented -3. Appropriate affect. Intact judgment and insight. - Labs CBC & Chem 7: 09/23/19 05:47 09/23/19 05:47 Labs: Abnormal Lab Results - Last 24 Hours (Table) 09/23/19 09/23/19 Range/Units 05:47 05:47 Calcium 8.3 L (8.4-10.2) mg/dL Magnesium 2.4 H (1.6-2.3) mg/dL ALT 67 H (4-34) U/L Total Protein 6.1 L (6.3-8.2) g/dL Albumin 3.3 L (3.5-5.0) g/dL Microbiology - Last 24 Hours (Table) 09/21/19 19:05 Urine Culture - Final Urine,Voided Assessment and Plan Plan: Assessment: #1. Dyspnea and lower extremity swelling related to fluid overload, hypertensive emergency, chest x-ray showed bilateral pleural effusions, and borderline enlargement of the heart and a suggestion of an infiltrate in the right lower lobe. Pro-calcitonin level came back low at 0.02, suggesting absence of bacterial infection including pneumonia. CTA chest showed no evidence of pulmonary embolism. Lower extremity Dopplers were negative for DVT #2. Moderate to severe pulmonary hypertension with right-sided pressure of 55 mmHg, mild MR, mild TR, possibility of pulmonary embolism has been ruled out with CT angios of the chest #3. Recent vaginal delivery at 38 week gestation, on 09/16/2019 at [facility], without complications #4. preeclampsia #5. Hypertension #6. Current every day smoker, smokes 7 cigarettes a day for 10 years #7. Possibility of urinary tract infection versus asymptomatic bacteriuria Plan: Patient is significantly diuresis, her breathing is improving, blood pressure management per cardiology, echocardiogram and CTA chest results have been reviewed pulmonary embolism has been ruled out. Pro-calcitonin level came back low at 0.02 suggesting absence of bacterial infection including pneumonia and urinary tract infection, patient is currently asymptomatic for any symptoms of urinary tract infection, we'll discontinue antibiotics. Increase activity as tolerated, patient is ambulating around the room, tolerating activity well, no complaints of chest pain, no cough or congestion, no fever or chills. Possible discharge this afternoon if cleared by cardiology I performed a history & physical examination of the patient and discussed their management with my nurse practitioner, Valerie Khoury. I reviewed the nurse practitioner's note and agree with the documented findings and plan of care. Lung sounds are positive for mild fine rales at the bases. The findings and the impression was discussed with the patient. I attest to the documentation by the nurse practitioner. Time with Patient: Less than 30
[2019-09-23] MEDS: LISINOPRIL 20 MG TAB PO SCH (12:13)
--- NOTE | 2019-09-23 14:10 | P.PN ---
Subjective Progress Note Date: 09/23/19 Principal diagnosis: Patient is a 29-year-old female with a known history of smoking and marijuana use who recently had a full-term normal vaginal baby delivery on the 09/16/2019 without complications, was discharged on 09/18/2019. On 09/19/2019 patient noticed having increased lower extremity swelling and shortness of breath. Patient was having cough with minimal greenish colored sputum x1 and also chest discomfort when taking deep breath. Denied any complaints of fever or chills. No nausea vomiting or abdominal pain or diarrhea. Denied any sick contacts at home. Denied any headache or dizziness. Denied any dysuria or hematuria or yellowish discoloration of urine. Blood pressure on admission was 177/100. No tachycardia. Patient was saturating well on room air on admission. Patient was also complaining of toothache and could not follow up with her dentist due to her appointment was canceled. Chest x-ray showed mild pleural reaction at the lung bases. Right lower lobe pneumonia. Heart is borderline enlarged. WBC 10.4, hemoglobin 12.9 and platelets 203 Sodium 136, potassium 4.3, magnesium 1.4 AST 37 ALT 50 and LVH 748 Troponin 1 negative, BNP 399. urinalysis showed cloudy with 2+ protein, large leukocyte esterase and elevated RBCs, WBCs and squamous epithelial cells. 09/23/2019 Patient is seen and evaluated in follow-up today saying that she feels much better today and has been up and ambulating around the room. Patient denies any shortness of breath, chest pain, or palpitations. She states she is tolerating diet with no reports of nausea or vomiting. Blood pressure continues to be slightly elevated and patient is maintained on hydralazine and labetalol. Lisinopril and Procardia XL being added. Patient states she is feeling much bet ter and has 3 children at home to take care of and is adamant about leaving today. Patient follows with Dr. Boudreaux in the outpatient setting and will need close follow-up and continuous monitoring of her blood pressure in the outpatient setting. Patient underwent CTA showing no PE and her echo shows overall LV function normal with an EF of 60-65% with some pulmonary hypertension noted. Patient will need to follow-up with cardiology in the outpatient setting as well. Will continue to follow. Objective - Vital Signs Vital signs: Vital Signs Temp 98.5 F 09/23/19 09:00 Pulse 73 09/23/19 11:00 Resp 16 09/23/19 11:00 BP 173/92 09/23/19 11:00 Pulse Ox 96 09/23/19 11:00 Intake & Output 09/22/19 09/23/19 09/23/19 18:59 06:59 18:59 Intake Total 600 1500 222 Output Total 2000 1400 900 Balance -1400 100 -678 Weight 139.7 kg Intake: Oral 600 1500 222 Output: Urine 1999 1400 900 Other: Voiding Method Toilet Toilet # Voids 2 1 - Exam Patient is sitting up at the side of the bed appears comfortable, no acute distress, awake alert and oriented.. HEENT: Normocephalic. Neck is supple. Pupils reactive. Nostrils clear. Oral cavity is moist. Ears reveal no drainage. Neck reveals no JVD, carotid bruits, or thyromegaly. CHEST EXAMINATION: Trachea is central. Symmetrical expansion. Bilateral breath sounds noted. No wheezing. Nonlabored breathing. CARDIAC: Normal S1, S2 with no gallops. No murmurs ABDOMEN: Soft. Bowel sounds normal. No organomegaly. No abdominal bruits. Extremities: reveal no edema. No clubbing or cyanosis Neurologically awake, alert, oriented x3 with well-coordinated movements. No focal deficits noted Skin: No rash or skin lesions. Psychiatric: Cooperative. Non-suicidal Musculoskeletal: No joint swelling or deformity. Normal range of motion. - Labs CBC & Chem 7: 09/23/19 05:47 09/23/19 05:47 Labs: Abnormal Lab Results - Last 24 Hours (Table) 09/23/19 09/23/19 Range/Units 05:47 05:47 Calcium 8.3 L (8.4-10.2) mg/dL Magnesium 2.4 H (1.6-2.3) mg/dL ALT 67 H (4-34) U/L Total Protein 6.1 L (6.3-8.2) g/dL Albumin 3.3 L (3.5-5.0) g/dL Microbiology - Last 24 Hours (Table) 09/21/19 19:05 Urine Culture - Final Urine,Voided Assessment and Plan Assessment: Exertional dyspnea and leg swelling with chest x-ray finding of bilateral effusions. acute CHF/ cardiomyopathy ruled out. BNP slightly elevated at 399 Possible right lower lobe pneumonia per chest x-ray. Hypomagnesemia, improved Preeclampsia. Patient does have elevated SBP >140, elevated liver enzymes improving. Random urine creatinine was 16.9. Patient does not have thrombocytopenia R creatinine greater than 1.1. No pulmonary edema. No cerebral symptoms. Recent normal vaginal delivery on 09/16/[address] [facility]. elevated blood pressure without any history of hypertension Ongoing nicotine addiction and occasional marijuana use Toothache DVT prophylaxis. Early ambulation. Plan: Patient will be continued on current dose of labetalol. Lisinopril 20 mg daily has been added along with hydralazine, and Procardia xl 90 mg daily will be added as well. Patient is maintained on on IV Lasix 20 mg twice a day. Patient has diuresed well. Magnesium today is 2.4. Magnesium has been discontinued. Patient underwent 2-D echo showing overall left ventricular systolic function is normal with an EF between 60 and 65% with moderate to severe pulmonary hypertension noted along with mild mitral and tricuspid regurgitation present. CTA done showing no pulmonary embolism with some fluid overload with bilateral dependent layering pleural effusions and associated atelectasis along with scattered groundglass opacities that are favored to be on the basis of interstitial fluid overload rather than pneumonia. Bilateral lower extremity duplex scan is negative for DVT. Antibiotics have been discontinued as the urine cultures finalized showing apparent skin and or genital sophie. Patient denying any symptoms of dysuria, burning, or discomfort with urination. Patient is adamant about going home today as she has a and 2 other small children to care for. Patient will need close monitoring of blood pressure control and follow-up with primary care provider this week in the outpatient s etting. Patient instructed to keep a diary of her blood pressure readings to bring with her for primary care follow-up. Will continue to follow along closely with multiple medical consultations while hospitalized.
[2019-09-23] MEDS ORDERED: NIFEdipine XL 90 MG TAB.ER.24 PO STA (15:34)
[2019-09-23] MEDS: ACETAMINOPHEN TAB 325 MG TAB PO PRN (21:10)
[2019-09-24] MEDS: LACTATED RINGERS 1,000 ML IV SCH (00:07)
[2019-09-24 03:24] VITALS: TEMP 98
[2019-09-24] MEDS: ACETAMINOPHEN TAB 325 MG TAB PO PRN (05:01)
[2019-09-24] MEDS: LABETALOL 200 MG TAB PO SCH (05:55)
[2019-09-24] MEDS ORDERED: NIFEdipine XL 90 MG TAB.ER.24 PO SCH (09:00)
[2019-09-24] MEDS: LISINOPRIL 20 MG TAB PO SCH (09:02)
[2019-09-24] MEDS: hydrALAZINE HCL 50 MG TAB PO SCH (09:02)
[2019-09-24] MEDS: FUROSEMIDE 10 MG/ML 2 ML VIAL IV SCH (09:02)
[2019-09-24] MEDS: HYDROcodone/APAP 5-325MG 1 EACH TAB PO PRN (09:09)
[2019-09-24] MEDS ORDERED: FUROSEMIDE 20 MG TAB PO SCH (10:00)
--- NOTE | 2019-09-24 10:57 | P.PN ---
Subjective Progress Note Date: 09/24/19 This is a 29-year-old female, 5 days post vaginal delivery of a healthy baby boy, she delivered at 38 weeks. She has no history of hypertension, no diabetes, no hyperlipidemia, she does smoke. She is not currently nursing the baby. She presents to the hospital with symptoms of progressively worsening shortness of breath and bilateral lower extremity edema which she states has been going on for the past 3 days. Her chest x-ray on presentation here shows mild pleural reaction at the lung bases questionable right lower lobe pneumonia according to the report. Heart is borderline enlarged. Venous duplex study of bilateral lower extremities negative for DVT. Her EKG shows a normal sinus rhy thm with nonspecific ST-T wave changes. Blood pressure on arrival here 177/100, heart rate in the 70s, 99% on room air. Her blood pressure this morning 188/98, heart rate in the 80s, 94% on room air. White blood cell count 10.9, hemoglobin 12.2, platelet count 190. Sodium 137, potassium 4.2, BUN 10, creatinine 0.5. Magnesium on admission 1.5, 3.5 this morning. AST 62, ALT 69. Troponin 0.016, BNP [id number]. Positive UTI. At the time of my examination this morning, she does state that her breathing is slightly improved, she was given Lasix on arrival here, her weight is down and she is put out good urine. 09/23/2019 Patient seen and examined this morning, diuresed well through the night last night. Blood pressure in the left arm this morning 184/90, right arm 154/70, heart rate in the 70s. Echocardiogram with Doppler study was performed which revealed an ejection fraction of 60-65%. Moderate to severe pulmonary hypertension. Chest x-ray shows borderline cardiac size. Improvement in aeration. 09/24/2019 A shunt seen and examined this morning, feeling well, blood pressure significantly improved. She is anticipating discharge home today. Blood pressure 124/70 this morning. We will discontinue the patient's hydralazine and continue the Procardia, beta ricci, and OMERO inhibitor. Discontinue the IV Lasix and placed the patient on 20 mg of oral Lasix daily. Objective - Vital Signs Vital signs: Vital Signs Temp 98 F 09/24/19 03:00 Pulse 75 09/24/19 05:00 Resp 16 09/24/19 05:00 BP 124/78 09/24/19 05:00 Pulse Ox 96 09/24/19 05:00 Intake & Output 09/23/19 09/24/19 09/24/19 18:59 06:59 18:59 Intake Total 762 Output Total 1700 2700 Balance -938 -2700 Intake: Oral 762 Output: Urine 1700 2700 Other: Voiding Method Toilet # Voids 1 - Exam PHYSICAL EXAMINATION: GENERAL: 29-year-old female in no acute distress at the time of my examination HEENT: Head is atraumatic, normocephalic. Pupils equal, round. Sclera anicteric. Conjunctiva are clear. Mucous membranes of the mouth are moist. Neck is supple. There is mild elevated jugular venous pressure. No carotid bruit is heard. HEART EXAMINATION: Heart S1, S2 normal. No murmur or gallop heard. CHEST EXAMINATION: Lungs reveal mild diminished air entry to the bases bilaterally ABDOMEN: Soft, nontender. Bowel sounds are heard. No organomegaly noted. EXTREMITIES: 2+ peripheral pulses with trace to 1+ evidence of peripheral edema and no calf tenderness noted. NEUROLOGIC patient is awake, alert and oriented 3 - Labs CBC & Chem 7: 09/23/19 05:47 09/23/19 05:47 Assessment and Plan Plan: Assessment and plan #1 symptoms of shortness of breath with bilateral lower extremity edema, suggestive congestive cardiac failure, possible cardiomyopathy #2 status post vaginal delivery of a healthy baby boy 3 days ago at 38 weeks #3 nicotine dependence #4 accelerated hypertension #5 hypomagnesemia, replaced #6 possible pneumonia Plan Discontinue IV Lasix and placed the patient on 20 mg of by mouth Lasix daily. Discontinue hydralazine. Continue labetalol, lisinopril, and Procardia. Patient may be able to be discharged home from our perspective. DNP note has been reviewed, I agree with a documented findings and plan of care. Patient was seen and examined.
[2019-09-24 11:19] VITALS: PULSE 76
[2019-09-24 11:21] VITALS: BP 138/86
--- NOTE | 2019-09-24 12:01 | P.PN ---
Subjective Progress Note Date: 09/24/19 29-year-old -[place] female patient of Dr. Boudreaux, with recent history of childbirth, to a term-baby boy on 09/16/2019 at the [facility] under the care of Dr. Crabtree, and it was a normal vaginal delivery, without complications. Patient was discharged home on September 18, 2019. On Friday she noted increasing swelling in her lower extremities, and shortness of breath. She does admit to some light pressure in her chest with exertion, she did have an episode of cough and she cleared some greenish colored phlegm, however her cough resolved. She denied any fever or chills, denied any hemoptysis, any pleuritic chest discomfort. Patient is a smoker, she smokes 7 cigarettes per day for 10 years. Patient has no significant medical history, no prior history of asthma no hypertension, she has a history of 3 normal pregnancies with 3 term vaginal deliveries without complications. No history of infections or STDs. Workup in emergency department included chest x-ray with bilateral pleural effusions and a suggestion of an infiltrate in the right lower lobe. Initial blood work showed white blood cell count of 10.4, hemoglobin of 12.9, platelet count of 203, normal differential, sodium is 136, the rest of electrolytes and renal profile were within normal limits, magnesium of 1.5, AST of 37, ALT of 50, lactate dehydrogenase of 748, troponin was 0.016, proBNP was 399, urinalysis showed 2+ protein, large amount of leuk trase, RBCs and WBCs. Patient was started on diuretics Lasix 20 mg every 12 hours, and was given empiric antibiotics for possibility of right lower lobe pneumonia, and we were consulted to evaluate the patient for possibility of right lower lobe pneumonia On 09/23/2019 patient seen in follow-up on selective care unit. She has been diuresed, she is down by 5.3 kg in the last 24 hours, her breathing has significantly improved, lower extremity edema has improved, no fever or chills, cough or congestion, yesterday we obtain CT angiogram chest, which showed fluid overload with small bilateral dependent layering pleural effusions and associated atelectasis, scattered groundglass opacities favored to be on the basis of interstitial fluid overload. No evidence of central pulmonary embolism. Procalcitonin level came back low at 0.02 making the likelihood of bacterial pneumonia low. We can discontinue the antibiotics, patient's urinalysis did show evidence of leukocyte esterase, white blood cells and red blood cells but urine culture showed skin and genital sophie contamination. Patient has no symptoms currently, she states she had been treated on an outpatient basis with a UTI. On 09/24/2019 patient seen in follow-up on selective care unit, she is in -3638 mL over the last 24 hours, and overall her weight is down by 5.4 kg since a dmission, she is breathing much easier, feeling much better, lower extremity edema has significantly improved, patient is on room air pulse ox of 94%, hemodynamic patient stable, blood pressure is better controlled, she is currently on oral Trandate, lisinopril, and nifedipine. Cardiology is follow ing, no acute events overnight, patient has been ambulating without any difficulty, today's labs have been reviewed showing CBC within normal limits, electrolytes and renal profile unremarkable, magnesium level is 2.4, liver enzymes slightly improved, with AST down to normal from 62, ALT is 67, and alkaline phosphatase is 112. Urine culture showed contamination with genital sophie and scan, for calcitonin was negative suggesting absence of bacterial infection, all antibiotics have been discontinued Objective - Vital Signs Vital signs: Vital Signs Temp 98 F 09/24/19 03:00 Pulse 76 09/24/19 09:00 Resp 16 09/24/19 09:00 BP 138/86 09/24/19 09:00 Pulse Ox 94 L 09/24/19 09:00 Intake & Output 09/23/19 09/24/19 09/24/19 18:59 06:59 18:59 Intake Total 762 Output Total 1700 2700 Balance -938 -2700 Intake: Oral 762 Output: Urine 1700 2700 Other: Voiding Method Toilet Toilet # Voids 1 - Exam GENERAL EXAM: Alert, very pleasant, 29-year-old -[place] female, with somewhat of a flat affect with a room air pulse ox of 94%, comfortable in no apparent distress. HEAD: Normocephalic/atraumatic. EYES: Normal reaction of pupils, equal size. Conjunctiva pink, sclera white. NOSE: Clear with pink turbinates. THROAT: No erythema or exudates. NECK: No masses, no JVD, no thyroid enlargement, no adenopathy. CHEST: No chest wall deformity. Symmetrical expansion. LUNGS: Equal air entry with minimal bibasilar fine crackles, but no wheeze, rhonchi or dullness. CVS: Regular rate and rhythm, normal S1 and S2, no gallops, no murmurs, no rubs ABDOMEN: Soft, nontender. No hepatosplenomegaly, normal bowel sounds, no guard ing or rigidity. EXTREMITIES: No clubbing, mild pretibial nonpitting edema, no cyanosis, 2+ pulses and upper and lower extremities. MUSCULOSKELETAL: Muscle strength and tone normal. SPINE: No scoliosis or deformity SKIN: No rashes CENTRAL NERVOUS SYSTEM: Alert and oriented -3. No focal deficits, tone is normal in all 4 extremities. PSYCHIATRIC: Alert and oriented -3. Appropriate affect. Intact judgment and insight. - Labs CBC & Chem 7: 09/23/19 05:47 09/23/19 05:47 Assessment and Plan Plan: Assessment: #1. Dyspnea and lower extremity swelling related to fluid overload, hypertensive emergency, chest x-ray showed bilateral pleural effusions, and borderline enlargement of the heart and a suggestion of an infiltrate in the right lower lobe. Pro-calcitonin level came back low at 0.02, suggesting abse nce of bacterial infection including pneumonia. CTA chest showed no evidence of pulmonary embolism. Lower extremity Dopplers were negative for DVT #2. Moderate to severe pulmonary hypertension with right-sided pressure of 55 mmHg, mild MR, mild TR, possibility of pulmonary embolism has been ruled out with CT angios of the chest #3. Recent vaginal delivery at 38 week gestation, on 09/16/2019 at [facility], without complications #4. preeclampsia #5. Hypertension #6. Current every day smoker, smokes 7 cigarettes a day for 10 years #7. Possibility of urinary tract infection versus asymptomatic bacteriuria Plan: Patient is a negative fluid balance, blood pressure is much better controlled, on a combination of lisinopril, Trandate, and nifedipine. She is maintaining good O2 saturations on room air, she's tolerating ambulation, no acute issues overnight, vital signs are stable, patient is being discharged home today I performed a history & physical examination of the patient and discussed their management with my nurse practitioner, Valerie Khoury. I reviewed the nurse practitioner's note and agree with the documented findings and plan of care. Lung sounds are positive for mild fine rales at the bases. The findings and the impression was discussed with the patient. I attest to the documentation by the nurse practitioner. Time with Patient: Less than 30
--- NOTE | 2019-09-24 12:43 | P.DS ---
<Lucina Payne - Last Filed: 09/24/19 12:32> Providers Expected date of discharge: 09/24/19 Hospital Course: Final diagnosis Exertional dyspnea and leg swelling with chest x-ray finding of bilateral effusions. acute CHF/ cardiomyopathy ruled out. BNP slightly elevated at 399 Possible right lower lobe pneumonia per chest x-ray. Hypomagnesemia Preeclampsia Patient does not have thrombocytopenia Recent normal vaginal delivery on 09/16/2019 elevated blood pressure without any history of hypertension Ongoing nicotine addiction and occasional marijuana use Toothache DVT prophylaxis Discharge disposition Patient is being discharged in a stable condition with guarded prognosis to home. Patient will follow-up with Dr. Lucio upon discharge. Patient will also need outpatient follow-up with pulmonary and cardiology as well. Patient will follow-up with her STAFFING BRANCH MANAGER in the outpatient setting as well. Total time taken is 35 minutes. History of present illness This is a 29-year-old female who was recently admitted with some bilateral lower extremity swelling along with shortness of breath and was being closely monitored. Cardiology as well as pulmonary were following. Patient had a chest x-ray showing mild pleural effusions at the lung bases along with possible right lower lobe pneumonia and the heart was borderline enlarged. Patient underwent echo showing overall left ventricular function normal with an EF of 60-65 percent with some pulmonary hypertension noted. There was also trace to mild mitral and tricuspid regurgitation present. Patient underwent CTA showing no pulmonary embolism. Patient did have elevated blood pressure with no history of hypertension and is 2 weeks . Patient was initiated on multiple antihypertensive medications and will continue at this time with labetalol, lisinopril, hydralazine, and Procardia XL in the outpatient setting. Blood pressure today much more managed and patient is tolerating well. Patient was also treated with some Lasix be IV and will be transitioned oral Lasix 20 mg daily for the outpatient setting. Patient will need close follow-up with cardiology as well as pulmonary the outpatient setting. Patient's STAFFING BRANCH MANAGER is out of [facility] and she will be following up with them as scheduled. Instructed the patient to continue to refrain from any smoking and keep a diary of blood pressure readings for primary care follow-up. Currently no reports of chest pain, shortness of breath, or palpitations. Patient is afebrile. No reports of nausea or vomiting and patient is tolerating diet. Currently patient's condition is stable today and will be discharged home today. On exam vital signs are stable. Temp is 98F, pulse is 76, respirations are 16, blood pressure is 138/86, oxygen saturation is 94% on room air. Cardio S1, S2 are muffled. Respiratory shows diminished breath sounds at the bases with no wheezing or rhonchi noted. Abdomen is soft and nontender. Nervous system shows no focal deficits. Please refer to medication reconciliation sheet for a list of medications Patient Condition at Discharge: Stable Plan - Discharge Summary Discharge Rx Participant: No New Discharge Prescriptions: New Furosemide [Lasix] 20 mg PO DAILY 30 Days #30 tab NIFEdipine XL [Procardia XL] 90 mg PO DAILY 30 Days #30 tab.er.[email or web address] Labetalol [Trandate] 400 mg PO BID@0600,1800 30 Days #60 tab Acetaminophen Tab [Tylenol] 650 mg PO Q6HR PRN tab PRN Reason: Fever And/ Or Pain Lisinopril [Zestril] 20 mg PO DAILY 30 Days #30 tab Discontinued Ibuprofen [Motrin Ib] 800 mg PO TID PRN PRN Reason: Pain Discharge Medication List Acetaminophen Tab [Tylenol] 650 mg PO Q6HR PRN tab 09/24/19 [Rx] Furosemide [Lasix] 20 mg PO DAILY 30 Days #30 tab 09/24/19 [Rx] Labetalol [Trandate] 400 mg PO BID@0600,1800 30 Days #60 tab 09/24/19 [Rx] Lisinopril [Zestril] 20 mg PO DAILY 30 Days #30 tab 09/24/19 [Rx] NIFEdipine XL [Procardia XL] 90 mg PO DAILY 30 Days #30 tab.er.24 09/24/19 [Rx] Follow up Appointment(s)/Referral(s): Filomena Zepeda MD [STAFF PHYSICIAN] - 1 Week (OFFICE CLOSED FOR LUNCH PATIENT WILL MAKE APPOINTMENT ) Rebecca Lucio MD [Primary Care Provider] - 1-2 days (PATIENT WILL MAKE APPOINTMENT) Dick Roblero MD [STAFF PHYSICIAN] - 2 Weeks (OFFICE WILL CALL WITH APPOINTMENT) Patient Instructions/Handouts: How to Stop Smoking (DC), Preeclampsia and Eclampsia After Delivery (GEN) Activity/Diet/Wound Care/Special Instructions: Activity Limited until follow-up Continue current diet Continue with medications as prescribed Follow-up with primary care provider upon discharge Follow-up with cardiology in the outpatient setting in 1-2 weeks Keep a diary of blood pressure readings for primary care follow-up Avoid tobacco and smoking Discharge Disposition: HOME SELF-CARE <Bj Alvarez E - Last Filed: 09/24/19 23:48> Providers Date of admission: 09/21/19 19:45 Attending physician: Rebecca Cruz Consults: 09/21/19 20:09 Consult Physician Stat Consulting Provider: Dalila Lyles Consult Reason/Comments: pre-eclampsia, r/o peripartum cardiomyopathy Do you want consulting provider notified?: Yes Consult Physician Stat Consulting Provider: Cody Kaiser Consult Reason/Comments: pre-eclampsia, r/o peripartum cardiomyopathy Do you want consulting provider notified?: Yes 09/22/19 08:58 Consult Physician Urgent Consulting Provider: Filomena Zepeda Consult Reason/Comments: sob,? infiltrate Do you want consulting provider notified?: Yes Primary care physician: Janusz Fernandez [facility] Course: I have discussed the plan and I have reviewed the note with STRATEGIC PROCUREMENT MANAGER lucina and I agree with it except what is mentioned below Pt is seen and examined by me at bed side pt presents with dyspnea and leg swelling which are resolved completely as per pt and she is back to her baseline. sje denies also any other s/s , no chest pain, no dyspnea, no change in urine or bowel habit , no nausea or vomiting , no abd pain , she is tolerating diet well . no fever. pt is telling me she feels back to normal and she wants to be discharged from yesterday , but she agreed to stay because yesterday her BP was still slightly elevated (SBP around 170) her BP on discharge today is 138/86, HR 76. pt was cleared by all managing consultant clinical professor teams including cardiology and pulmonary teams for discharge , also test deskman singed off ( they transferred service to medicine yesterday as they were the primary team) Pt was instructed about the problems and management plan and Pt verbalized understanding and acceptance Pt is found stable and can be discharged to the community but needs follow up as outpt Pt instructed to follow up with her PCP dr. lucio in one week and she agrees.also she told me she will f/u with her test deskman in 2 weeks and she can call and make appointment pt is instructed to follow up with in one week and she agrees, pt is instructed to f/u with respiratory medicine physician in 2week and she agrees ( office will call pt for appointment) pt states she will call and make her appointment
== END 2019-09-24 13:28 | disposition home or self-care (01) | DRG 776 ==
LOC: EC 17:52 → 3SCARD 19:45
PROVIDERS: ADMIT Internal Medicine; ATTEND Internal Medicine
DX: O14.95 Unspecified pre-eclampsia, complicating the puerperium (principal); J18.9 Pneumonia, unspecified organism; I16.1 Hypertensive emergency; J90 Pleural effusion, not elsewhere classified; J98.11 Atelectasis; Z68.43 Body mass index [BMI] 50.0-59.9, adult; E66.9 Obesity, unspecified; I27.20 Pulmonary hypertension, unspecified; F17.210 Nicotine dependence, cigarettes, uncomplicated; R74.0 Nonspecific elevation of levels of transaminase and lactic acid dehydrogenase [LDH]; E83.42 Hypomagnesemia; O99.53 Diseases of the respiratory system complicating the puerperium; K08.89 Other specified disorders of teeth and supporting structures; I07.1 Rheumatic tricuspid insufficiency; E87.70 Fluid overload, unspecified; R74.8 Abnormal levels of other serum enzymes; Z71.6 Tobacco abuse counseling; Z98.890 Other specified postprocedural states
CPT/HCPCS: 36415; 71045; 71046; 71275; 80053; 81001; 82570; 83615; 83735; 83880; 84145; 84156; 84484; 84550; 85025; 87086; 93005; 93306; 93970; 96365; 96366; 96368; 96375; 96376; 99291